=== PATIENT | male | born 1965 | race Caucasian/White ===

== ENCOUNTER 2017-05-14 18:20 | Emergency (ER) | payer MEDICARE ==
[2017-05-14 18:58] LABS: ABSOLUTE EOSINOPHILS # (AUTO) 0.2 10^3/uL (0.0-0.6); ABSOLUTE LYMPHOCYTES (AUTO) 1.4 10^3/uL (0.5-4.7); ABSOLUTE MONOCYTES (AUTO) 0.3 10^3/uL (0.1-1.4); ABSOLUTE NEUT (AUTO) 3.9 10^3/uL (1.7-8.2); BASOPHILS % (AUTO) 0.8 % (0-2); EOSINOPHILS % (AUTO) 3.3 % (0-6); HEMOGLOBIN 14.3 g/dL (13.5-17.0); HGB HCT DIFFERENCE -0.1; LYMPHOCYTES % (AUTO) 23.8 % (13-45); MEAN CORPUSCULAR HEMOGLOBIN 30.4 pg (27.0-33.4); MEAN CORPUSCULAR HGB CONC 33.2 g/dL (32.0-36.0); MEAN CORPUSCULAR VOLUME 92 fl (80-97); MONOCYTES % (AUTO) 5.5 % (3-13); RED BLOOD COUNT 4.69 10^6/uL (4.35-5.55); RED CELL DISTRIBUTION WIDTH 15.7 % (11.5-14.0); SEGMENTED NEUTROPHILS % (AUTO) 66.6 % (42-78); WHITE BLOOD COUNT 5.8 10^3/uL (4.0-10.5)
[2017-05-14] MEDS ORDERED: NITROGLYCERIN 0.4 MG/TAB 25 TAB/BOTTLE SL PRN (18:59)
[2017-05-14] MEDS ORDERED: FENTANYL CITRATE INJ/PF 100 MCG/2 ML AMPUL IV PRN (19:00)
--- NOTE | 2017-05-14 19:02 | RADIOLOGY REPORT (SQ) ---
EXAM DESCRIPTION: CHEST SINGLE VIEW COMPLETED DATE/TIME: 05/14/2017 6:51 pm REASON FOR STUDY: chest pain COMPARISON: None. EXAM PARAMETERS: NUMBER OF VIEWS: One view. TECHNIQUE: Single frontal radiographic view of the chest acquired. RADIATION DOSE: NA LIMITATIONS: None. FINDINGS: LUNGS AND PLEURA: There is mild pulmonary vascular congestion. MEDIASTINUM AND HILAR STRUCTURES: No masses. Contour normal. HEART AND VASCULAR STRUCTURES: Cardiomegaly without tita CHF. BONES: No acute findings. HARDWARE: Pacemaker/defibrillator. OTHER: No other significant finding. IMPRESSION: Cardiomegaly with pulmonary vascular congestion but no tita CHF. TECHNICAL DOCUMENTATION: JOB ID: [id number]
--- NOTE | 2017-05-14 19:09 | ER Document Report ---
ED General - General Stated Complaint: CHEST PAIN Time Seen by Provider: 05/14/17 18:35 Notes: Patient is a 51-year-old male with past medical history of ischemic cardiomyopathy, ejection fraction of 15%, coronary artery disease last cardiac catheterization 11 years ago with stent placement, current tobacco abuse, who presents with acute onset of left-sided chest pressure with radiation of the pain to the bilateral upper extremities. This occurred during exertion after he was walking up and down a driveway approximately 5 times. He received nitroglycerin by EMS which she states has resolved his chest pain. Patient is noted to be hypoxic at time of presentation and denies the use of nasal cannula at baseline. No history of COPD or asthma. He has not noted that anything other than exertion seemed to have triggered his chest pain. He reports a history of similar episodes in the past. He recently saw his puppy sitter and was told that he had a stress test that was "worrisome" but does not know further details. TRAVEL OUTSIDE OF THE [place] IN LAST 30 DAYS: No - Related Data Allergies/Adverse Reactions: cinnamon Allergy (Verified 06/18/16 10:03) morphine [Morphine] Adverse Reaction (Severe, Verified 08/01/15 01:53) itching Past Medical History - General Information source: Patient - Social History Smoking Status: Current Every Day Smoker Frequency of alcohol use: None Drug Abuse: None Lives with: Family Family History: CAD - Past Medical History Cardiac Medical History: Reports: Hx Congestive Heart Failure, Hx Coronary Artery Disease, Hx Heart Attack, Hx Hypertension Pulmonary Medical History: Reports: Hx COPD Skin Medical History: Comment Only Hx MRSA - MRSA 04/15 [facility] Psychiatric Medical History: Denies: Hx Depression Past Surgical History: Reports: Hx Cardiac Catheterization - with stent, Hx Internal Defibrillator, Hx PacemakerComment Only: Hx Cardiac Surgery - defib placement - Immunizations Hx Diphtheria, Pertussis, Tetanus Vaccination: No Review of Systems - Review of Systems Notes: Constitutional: Negative for fever. HENT: Negative for sore throat. Eyes: Negative for visual changes. Cardiovascular: Positive for chest pain. Respiratory: Positive for shortness of breath. Gastrointestinal: Negative for abdominal pain, vomiting or diarrhea. Genitourinary: Negative for dysuria. Musculoskeletal: Negative for back pain. Skin: Negative for rash. Neurological: Negative for headaches, weakness or numbness. 10 point ROS negative except as marked above and in HPI. Physical Exam - Vital signs Vitals: Resp Pulse Ox 19 86 L 05/14/17 18:34 05/14/17 18:34 Interpretation: Tachycardic, Hypoxic, Tachypneic Notes: PHYSICAL EXAMINATION: GENERAL: Ill in appearance, diaphoretic HEAD: Atraumatic, normocephalic. EYES: Pupils equal round and reactive to light, extraocular movements intact, sclera anicteric, conjunctiva are normal. ENT: nares patent, oropharynx clear without exudates. Moderately dry mucous membranes. NECK: Normal range of motion, supple without lymphadenopathy LUNGS: Breath sounds clear to auscultation bilaterally and equal. No wheezes rales or rhonchi. HEART: Regular tachycardia without murmurs ABDOMEN: Soft, nontender, normoactive bowel sounds. No guarding, no rebound. No masses appreciated. EXTREMITIES: Normal range of motion, 1+ pitting edema on the right, 2+ on the left NEUROLOGICAL: No focal neurological deficits. Moves all extremities spontaneously and on command. PSYCH: Normal mood, normal affect. SKIN: Warm, Dry, normal turgor, no rashes or lesions noted. Course - Re-evaluation Re-evalutation: 05/14/17 19:04 Patient presents ill in appearance, diaphoretic, complaining of chest pressure that started with exertion. He he has a worrisome history given that it was left-sided chest pain with radiation of the bilateral upper extremities during exertion. He has a history of ischemic cardiomyopathy with a known ejection fraction of 15%. He has a pacemaker, develop later in place but apparently the defibrillator battery is not working and he is wearing a LifeVest due to his low ejection fraction. States he recently had a cardiac stress test and was told "it was very worrisome" but did not know any additional details. Patient is diaphoretic, tachycardic, hypoxic on room air. Primary diagnostic concerns at this point include progressively worsening ischemic cardiomyopathy, possible acute pulmonary embolus, less likely to be acute pulmonary edema as patient's blood pressure is normal, I do not appreciate any rales on exam, and chest x- ray does not demonstrate any venous congestion or pulmonary edema. His initial EKG shows left bundle branch block of which he has a history without meeting any scar Bosa criteria. I do not believe he is having an acute STEMI at this time. He will however require transfer to a high level care facility as I believe he warrants a cardiac catheterization given his high risk and history. Will obtain basic labs including a d-dimer and reassess frequently. Patient is critically ill at this time and will require frequent reassessments. 05/14/17 19:59 Patient remains moderately tachycardic, current rate 115, diaphoresis has resolved. No longer has chest pressure. D-dimer is elevated and given tachycardia and hypoxemia will proceed with CTA of the chest. 05/14/17 22:41 I have discussed this case with Dr. Lantigua, at [facility] who has accepted the patient for admission. We will continue to trend his troponins. They do not have a bed available at this time. 05/15/17 00:21 Patient remains mildly hypotensive, will trial 250 cc bolus. Second troponin is hemolyzed. Will continue to monitor closely. 05/15/17 01:14 Patient's BP is not fluid responsive to a 500cc trial. Will not give additional fluids as this has not made any impact and he has severe CHF. Patient is also resting which could naturally lower his BP. He wakes, talks normally, and states he feels much better since arrival. Review of prior records shows his BP typically rests low 100s upper 90s. MAP is 70. No indication for pressors at this time. 05/15/17 01:43 Patient was able to stand at the bedside without any difficulty. No orthostasis. His maps remain in the 70s. Patient does confirm that his blood pressures are typically in the low 100s upper 90s. I do not see an obvious etiology for why patient would be mildly hypertensive other than that his normal blood pressure is in the 90s and he is sleeping often. When he wakes up he is appropriate and denies any ongoing symptoms. We have not given any narcotic pain medication or additional nitroglycerin. He does not have any additional symptoms to suggest that he is proceeding to cardiogenic shock. Will continue to monitor closely but at this time I suspect this is likely in a symptomatically mild hypotension. 05/15/17 02:51 Patient's pressure remains stable in the 90s at this time. He remains without chest pain. Awaiting transfer. 05/15/17 04:01 Patient remains clinically stable at this time. Awaiting transfer to [facility]. Troponins have not trended upward. 05/15/17 04:01 - Vital Signs Vital signs: Temp Pulse Resp BP Pulse Ox 78 13 88/68 L 97 05/15/17 01:26 05/15/17 03:46 05/15/17 03:45 05/15/17 03:46 - Laboratory Result Diagrams: 05/14/17 18:40 05/14/17 18:40 Laboratory results interpreted by me: 05/14/17 05/14/17 05/14/17 18:40 18:40 18:40 RDW 15.7 H D-Dimer 1.67 H Glucose 126 H NT-Pro-B Natriuret Pep 05/14/17 18:40 RDW D-Dimer Glucose NT-Pro-B Natriuret Pep 3520 H - Diagnostic Test Radiology reviewed: Image reviewed, Reports reviewed Radiology results interpreted by me: 05/14/17 20:00 Chest x-ray: Cardiomegaly, mild vascular congestion but no overt pulmonary edema - EKG Interpretation by Me Additional EKG results interpreted by me: 05/14/17 20:00 Sinus tachycardia, rate 116. Left bundle branch block. No scarbosa criteria. Critical Care Note - Critical Care Note Total time excluding time spent on procedures (mins): 35 Comments: Critical care time spent obtaining history from patient or surrogate, discussions with consultants, development of treatment plan with patient or surrogate, evaluation of patient's response to treatment, examination of patient , ordering and performing treatments and interventions, ordering and review of laboratory studies, re-evaluation of patient's condition, ordering and review of radiographic studies and review of old charts Discharge - Discharge Clinical Impression: Acute on chronic systolic heart failure Congestive heart failure Qualifiers: Congestive heart failure type: systolic Congestive heart failure chronicity: chronic Qualified Code(s): I50.22 - Chronic systolic (congestive) heart failure Chest pain Qualifiers: Chest pain type: chest pain due to myocardial ischemia Ischemic chest pain type : stable angina pectoris Qualified Code(s): I20.8 - Other forms of angina pectoris Condition: Fair Disposition: [facility] Referrals: ARNOLD CORTEZ MD [Primary Care Provider] - Follow up as needed
[2017-05-14 19:13] LABS: ANION GAP 12 (5-19); BLOOD UREA NITROGEN 11 mg/dL (7-20); CARBON DIOXIDE 22 mmol/L (22-30); CHLORIDE 103 mmol/L (98-107); CREATINE KINASE 130 U/L (55-170); CREATININE RESULT 1.12 mg/dL (0.52-1.25); GLUCOSE 126 mg/dL (75-110); POTASSIUM 3.8 mmol/L (3.6-5.0); SODIUM 137.2 mmol/L (137-145)
[2017-05-14 19:26] LABS: CREATINE KINASE MB 1.22 ng/mL (<4.55); TROPONIN I 0.027 ng/mL
--- NOTE | 2017-05-14 19:53 | EKG REPORT ---
SEVERITY:- ABNORMAL ECG - SINUS TACHYCARDIA VENTRICULAR PREMATURE COMPLEX LEFT BUNDLE BRANCH BLOCK LA ABNORMALITY : Confirmed by: Arthur Romano MD 14-May-2017 19:53:06
--- NOTE | 2017-05-14 21:21 | RADIOLOGY REPORT (SQ) ---
EXAM DESCRIPTION: CTA CHEST COMPLETED DATE/TIME: 05/14/2017 9:08 pm REASON FOR STUDY: eval pe, elevated dimer COMPARISON: CT chest dated 04/25/2008, chest x-ray done earlier the same day. TECHNIQUE: CT scan of the chest performed using helical scanning technique with dynamic intravenous contrast injection. Images reviewed with lung, soft tissue and bone windows. Reconstructed coronal and sagittal MPR images reviewed. Additional 3 dimensional post-processing performed to develop Maximal Intensity Projection images ([place] P). All images stored on PACS. All CT scanners at this facility use dose modulation, iterative reconstruction, and/or weight based d osing when appropriate to reduce radiation dose to as low as reasonably achievable (ALARA). [facility]: Dose Right [facility]: CareDose [facility]: Dose Right [facility]: Teradose 4D [facility]: Multichannel CONTRAST TYPE AND DOSE: contrast/concentration: Isovue 370.00 mg/ml; Total Contrast Delivered: 80.0 ml; Total Saline Delivered: 50.0 ml Contrast bolus optimized for the pulmonary arteries. Not diagnostic for the aorta. RENAL FUNCTION: BUN 11, creatinine 1.12 RADIATION DOSE: Up-to-date CT equipment and radiation dose reduction techniques were employed. CTDIv ol: 17.2 - 44.6 mGy. DLP: 729 mGy-cm. . LIMITATIONS: None. FINDINGS: LUNGS AND PLEURA: No masses, infiltrates, pneumothorax. No pleural effusions, calcificati ons. AORTA AND GREAT VESSELS: No aneurysm. Contrast bolus not optimized for the aorta. HEART: No pericardial effusion. No significant coronary artery calcifications. PULMONARY ARTERIES: No emboli visualized in the main pulmonary arteries or the segmental branches. HILAR AND MEDIASTINAL STRUCTURES: There is mediastinal and hilar adenopathy. This could be reactive or neoplastic. The nodes are small but relatively numerous. HARDWARE: Battery pack and leads are in place. UPPER ABDOMEN: No significant findings. Limited exam. THYROID AND OTHER SOFT TISSUES: No masses. No adenopathy. BONES: No acute or significant finding. 3D MIPS: Confirm above findings. OTHER: No other significant finding. IMPRESSION: No pulmonary emboli. There is mediastinal and hilar adenopathy. This is nonspecific. COMMENT: Quality ID # [id number]: Final reports with documentation of one or more dose reduction techniques (e.g., Automated exposure control, adjustment of the mA and/or kV according to patient size, use of iterative reconstruction technique) TECHNICAL DOCUMENTATION: JOB ID: [id number] [employer]- All Rights Reserved
[2017-05-14] MEDS ORDERED: NORMAL SALINE 1000 ML 250 ML IV ONE (22:42)
--- NOTE | 2017-05-15 06:28 | ER Document Report ---
Doctor's Note Notes: 05/15/17 06:27 I walked in the room to reevaluate the patient. Patient is sleeping and resting very comfortably. She has no signs of distress. His vital signs are stable on the monitor. Repeat cardiac enzymes still in the indeterminate range. I have checked out the patient to morning ER physician, Dr. Baer, who will continue to monitor the patient until transferred.
--- NOTE | 2017-05-15 12:25 | ER Document Report ---
Doctor's Note Notes: 05/15/17 12:24 Patient with known cardiomyopathy and low EF. He has been in the emergency department awaiting transfer for higher level of care and cardiac catheterization. He has remained stable. Blood pressure currently 90/72 with a pulse of 83. He appears stable for transfer.
[2017-05-15 12:31] VITALS: BP 90/72
== END 2017-05-15 12:31 | disposition short-term general hospital (02) ==
LOC: ER 18:20
DX: I50.23 Acute on chronic systolic (congestive) heart failure (principal); I20.8 Other forms of angina pectoris; I25.5 Ischemic cardiomyopathy; I25.10 Atherosclerotic heart disease of native coronary artery without angina pectoris; F17.200 Nicotine dependence, unspecified, uncomplicated
CPT/HCPCS: 93005; 99291; 96374; 36415; 82553; 82550; 85025; 80048; 84484; 85379; 83880; 71010; 71275; 93010; J3010; J7030

== ENCOUNTER 2017-06-19 09:48 | Emergency (ER) | payer MEDICARE ==
[2017-06-19] MEDS ORDERED: ASPIRIN 81 MG TABLET, CHEWABLE PO ONE (10:11)
--- NOTE | 2017-06-19 10:12 | ER Document Report ---
ED Medical Screen (RME) - General TRAVEL OUTSIDE OF THE [place] IN LAST 30 DAYS: No <BENOIT BUCHANAN - Last Filed: 06/19/17 10:11> <JONATHAN COOMBS - Last Filed: 06/19/17 10:18> - General Chief Complaint: Chest Pain Stated Complaint: CHEST PAIN Time Seen by Provider: 06/19/17 10:05 Notes: 51-year-old male presenting the emergency department complaining of one-week history of intermittent shortness of breath the general is been lasting 1-2 hours a day however it became constant last night and is getting worse, associated with left-sided chest pressure as well. Patient states he had 2 coronary artery stents placed in [place] approximately 2 weeks ago and had his pacemaker adjusted as well. Has had some medication changes. Cannot remember exactly what has been changed. Took his baby aspirin today. Admits that the shortness of breath worsens with laying flat. (JONATHAN COOMBS) - Related Data Allergies/Adverse Reactions: cinnamon Allergy (Verified 06/19/17 10:06) morphine [Morphine] Adverse Reaction (Severe, Verified 06/19/17 10:06) itching Past Medical History - Past Medical History Cardiac Medical History: Reports: Hx Congestive Heart Failure, Hx Coronary Artery Disease, Hx Heart Attack, Hx Hypertension Pulmonary Medical History: Reports: Hx COPD Renal/ Medical History: Denies: Hx Peritoneal Dialysis Skin Medical History: Comment Only Hx MRSA - MRSA 04/15 [facility] Psychiatric Medical History: Denies: Hx Depression Past Surgical History: Reports: Hx Cardiac Catheterization - with stent, Hx Internal Defibrillator, Hx PacemakerComment Only: Hx Cardiac Surgery - defib placement - Immunizations Hx Diphtheria, Pertussis, Tetanus Vaccination: No <BENOIT BUCHANAN - Last Filed: 06/19/17 10:11> - General Information source: Patient - Social History Cigarette use (# per day): No Chew tobacco use (# tins/day): No Frequency of alcohol use: None Drug Abuse: None <JONATHAN COOMBS - Last Filed: 06/19/17 10:18> Review of Systems - Review of Systems Cardiovascular: See HPI Respiratory: See HPI <JONATHAN COOMBS - Last Filed: 06/19/17 10:18> Physical Exam <BENOIT BUCHANAN - Last Filed: 06/19/17 10:11> - Vital signs Interpretation: Normal <JONATHAN COOMBS - Last Filed: 06/19/17 10:18> - Vital signs Vitals: Temp Pulse Resp BP Pulse Ox 97.9 F 98 20 112/75 96 06/19/17 09:57 06/19/17 09:57 06/19/17 09:57 06/19/17 09:57 06/19/17 09:57 - Notes Notes: Appears anxious, quite short of breath, tachypneic but not tachycardic. Lungs are clear to auscultation bilaterally without any wheezing rales or rhonchi, heart is regular rate and rhythm with no murmurs gallops or rubs. Patient is somewhat pale. (JONATHAN COOMBS) Course <BENOIT BUCHANAN - Last Filed: 06/19/17 10:11> <JONATHAN COOMBS - Last Filed: 06/19/17 10:18> - Re-evaluation Re-evalutation: 06/19/17 10:18 EKG is relatively unchanged, does not show STEMI, cardiac workup initiated. Sent to main part of the emergency department for further workup. (JONATHAN COOMBS) - Vital Signs Vital signs: Temp Pulse Resp BP Pulse Ox 97.9 F 98 20 112/75 96 06/19/17 09:57 06/19/17 09:57 06/19/17 09:57 06/19/17 09:57 06/19/17 09:57
[2017-06-19 11:18] LABS: ABSOLUTE EOSINOPHILS # (AUTO) 0.1 10^3/uL (0.0-0.6); ABSOLUTE MONOCYTES (AUTO) 0.3 10^3/uL (0.1-1.4); ABSOLUTE NEUT (AUTO) 6.2 10^3/uL (1.7-8.2); BASOPHILS % (AUTO) 0.5 % (0-2); EOSINOPHILS % (AUTO) 1.9 % (0-6); HEMATOCRIT 42.9 % (37.9-51.0); HEMOGLOBIN 14.5 g/dL (13.5-17.0); HGB HCT DIFFERENCE 0.6; LYMPHOCYTES % (AUTO) 13.5 % (13-45); MEAN CORPUSCULAR HEMOGLOBIN 29.9 pg (27.0-33.4); MEAN CORPUSCULAR HGB CONC 33.9 g/dL (32.0-36.0); MEAN CORPUSCULAR VOLUME 88 fl (80-97); MONOCYTES % (AUTO) 4.3 % (3-13); RED BLOOD COUNT 4.87 10^6/uL (4.35-5.55); RED CELL DISTRIBUTION WIDTH 15.4 % (11.5-14.0); SEGMENTED NEUTROPHILS % (AUTO) 79.8 % (42-78); WHITE BLOOD COUNT 7.7 10^3/uL (4.0-10.5)
--- NOTE | 2017-06-19 11:31 | RADIOLOGY REPORT (SQ) ---
EXAM DESCRIPTION: CHEST SINGLE VIEW COMPLETED DATE/TIME: 06/19/2017 10:59 am REASON FOR STUDY: SOB, CP COMPARISON: 05/14/2017 EXAM PARAMETERS: NUMBER OF VIEWS: One view. TECHNIQUE: Single frontal radiographic view of the chest acquired. RADIATION DOSE: NA LIMITATIONS: None. FINDINGS: LUNGS AND PLEURA: There is ill-defined retrocardiac opacification on the left. Portions t he left hemidiaphragm are indistinct. MEDIASTINUM AND HILAR STRUCTURES: No masses. Contour normal. HEART AND VASCULAR STRUCTURES: Cardiomegaly without CHF. BONES: No acute findings. HARDWARE: Pacemaker/defibrillator. OTHER: No other significant finding. IMPRESSION: 1. Cardiomegaly without failure. 2. Cannot exclude a limited left lower lobe pneumonia. TECHNICAL DOCUMENTATION: JOB ID: [id number]
[2017-06-19 11:44] LABS: ALANINE AMINOTRANSFERASE 32 U/L (21-72); ALBUMIN 4.5 g/dL (3.5-5.0); ALKALINE PHOSPHATASE 74 U/L (38-126); ANION GAP 16 (5-19); ASPARTATE AMINO TRANSFERASE 17 U/L (17-59); BILIRUBIN,DIRECT 0.7 mg/dL (0.0-0.4); BILIRUBIN,TOTAL 3.1 mg/dL (0.2-1.3); BLOOD UREA NITROGEN 13 mg/dL (7-20); CALCIUM 9.8 mg/dL (8.4-10.2); CARBON DIOXIDE 24 mmol/L (22-30); CHLORIDE 105 mmol/L (98-107); CREATINE KINASE 64 U/L (55-170); GLUCOSE 104 mg/dL (75-110); POTASSIUM 4.3 mmol/L (3.6-5.0); TOTAL PROTEIN 7.4 g/dL (6.3-8.2)
[2017-06-19 11:54] LABS: CREATINE KINASE MB 1.67 ng/mL (<4.55)
[2017-06-19 11:55] LABS: TROPONIN I 0.054 ng/mL
--- NOTE | 2017-06-19 12:53 | ER Document Report ---
ED Cardiac - General Mode of Arrival: Ambulatory Information source: Patient TRAVEL OUTSIDE OF THE [place] IN LAST 30 DAYS: No <LEOBARDO KING - Last Filed: 06/19/17 14:03> <GIOVANNI ANDINO - Last Filed: 06/19/17 16:33> - General Chief Complaint: Chest Pain Stated Complaint: CHEST PAIN Time Seen by Provider: 06/19/17 10:05 Notes: Patient is a 51-year-old male that presents to the emergency department today with complaints of chest pain for one week. Patient states he had a defibrillator changed one week ago and he had two stents placed during this change. Patient states his chest pain is exacerbated with coughing and deep breathing. (LEOBARDO KING) - Related Data Allergies/Adverse Reactions: cinnamon Allergy (Verified 06/19/17 10:06) morphine [Morphine] Adverse Reaction (Severe, Verified 06/19/17 10:06) itching Home Medications: Current Home Medications Atorvastatin Calcium 40 mg PO DAILY 06/19/17 [History] Furosemide [Lasix 40 mg Tablet] 20 mg PO DAILY 06/19/17 [History] Lisinopril [Prinivil 5 mg Tablet] 2.5 mg PO DAILY 06/19/17 [History] Metoprolol Succinate [Toprol Xl 25 mg Tab.sr] 12 mg PO DAILY 06/19/17 [History] Sacubitril/Valsartan [Entresto 49 mg-51 mg Tablet] 1 each PO BID 06/19/17 [ History] Ticagrelor [Brilinta 90 mg Tablet] 1 tab PO BID 06/19/17 [History] Past Medical History - General Information source: Patient - Social History Smoking Status: Never Smoker Cigarette use (# per day): No Chew tobacco use (# tins/day): No Frequency of alcohol use: None Drug Abuse: None Family History: CAD Patient has suicidal ideation: No - Past Medical History Cardiac Medical History: Reports: Hx Congestive Heart Failure, Hx Coronary Artery Disease, Hx Heart Attack, Hx Hypertension Pulmonary Medical History: Reports: Hx COPD Skin Medical History: Comment Only Hx MRSA - MRSA 04/15 [facility] Past Surgical History: Reports: Hx Cardiac Catheterization - with stent, Hx Internal Defibrillator, Hx PacemakerComment Only: Hx Cardiac Surgery - defib placement - Immunizations Hx Diphtheria, Pertussis, Tetanus Vaccination: No <LEOBARDO KING - Last Filed: 06/19/17 14:03> Review of Systems - Review of Systems Constitutional: No symptoms reported EENT: No symptoms reported Cardiovascular: See HPI, Chest pain Respiratory: No symptoms reported Gastrointestinal: No symptoms reported Genitourinary: No symptoms reported Male Genitourinary: No symptoms reported Musculoskeletal: No symptoms reported Skin: No symptoms reported Hematologic/Lymphatic: No symptoms reported Neurological/Psychological: No symptoms reported <LEOBARDO KING - Last Filed: 06/19/17 14:03> Physical Exam <LEOBARDO KING - Last Filed: 06/19/17 14:03> <THU,GIOVANNI - Last Filed: 06/19/17 16:33> - Vital signs Vitals: Temp Pulse Resp BP Pulse Ox 97.9 F 98 20 112/75 96 06/19/17 09:57 06/19/17 09:57 06/19/17 09:57 06/19/17 09:57 06/19/17 09:57 - Notes Notes: Physical Exam: General: Alert, appears well. HEENT: Normocephalic. Atraumatic. PERRL. Extraocular movements intact. Oropharynx clear. Neck: Supple. Non-tender. Respiratory: No respiratory distress. Slight wheezing and rhonchi bilaterally. Left anterior chest wall tenderness with palpation. Pain with cough and breathing. Cardiovascular: Regular rate and rhythm. Abdominal: Normal Inspection. Non-tender. No distension. Normal Bowel Sounds. Back: Non-tender. No deformity or step off. Extremities: Moves all four extremities. Upper extremities: Normal inspection. Normal ROM. Lower extremities: Trace edema bilaterally. Normal ROM. Neurological: Normal cognition. AAOx4. Normal speech. Psychological: Normal affect. Normal Mood. Skin: Warm. Dry. Normal color. (LEOBARDO KING) Course - Laboratory Result Diagrams: 06/19/17 10:25 06/19/17 10:25 <LEOBARDO KING - Last Filed: 06/19/17 14:03> - Laboratory Result Diagrams: 06/19/17 10:25 06/19/17 10:25 - Diagnostic Test Radiology reviewed: Image reviewed, Reports reviewed - Portable chest x-ray was read as possible infiltrate behind the left heart with blurring of the diaphragm. A good PA and lateral films done later shows some pulmonary vascular congestion without pulmonary edema. - EKG Interpretation by Me EKG shows normal: Sinus rhythm, [place], Intervals, QRS Complexes, ST-T Waves Rate: Tachycardia - 101 Rhythm: PVC's [place]/QRS: RBBB, LAHB/LAFB Voltage: Consistant with LVH When compared to previous EKG there are: No significant change - Consults Dr. Smith Time consulted: 16:25 Consulted provider: follow-up in office - Dr. Smith suggests I give him additional IV Lasix at this time possibly his usual daily dose of 20 mg. He thinks he should be okay to follow-up with him in the office tomorrow. <GIOVANNI ANDINO - Last Filed: 06/19/17 16:33> - Re-evaluation Re-evalutation: 06/19/17 16:25 The patient's BNP is much higher today than it has been over the past month. He does seem to be a little dyspneic, his family reports he seems to been more short of breath since he got out of the hospital following his 2 stents and new defibrillator a month ago. He takes Lasix 20 mg daily. He states his blood pressure has been low since he was placed on the interest, and they did not want him taking additional Lasix because of the interaction with that new medication. A good PA and lateral chest x-ray suggests pulmonary vascular congestion. (GIOVANNI ANDINO) - Vital Signs Vital signs: Temp Pulse Resp BP Pulse Ox 97.9 F 98 20 112/75 96 06/19/17 09:57 06/19/17 09:57 06/19/17 09:57 06/19/17 09:57 06/19/17 09:57 - Laboratory Laboratory results interpreted by me: 06/19/17 06/19/17 06/19/17 10:25 10:25 10:25 RDW 15.4 H Seg Neutrophils % 79.8 H Total Bilirubin 3.1 H Direct Bilirubin 0.7 H NT-Pro-B Natriuret Pep 7010 H Discharge <LEOBARDO KING - Last Filed: 06/19/17 14:03> <GIOVANNI ANDINO - Last Filed: 06/19/17 16:33> - Discharge Clinical Impression: Pulmonary vascular congestion, Chest wall pain Dyspnea Qualifiers: Dyspnea type: unspecified Qualified Code(s): R06.00 - Dyspnea, unspecified Condition: Stable Disposition: HOME, SELF-CARE Additional Instructions: The chest pain you are experiencing seems to be coming from the chest wall bones and muscles. Your repeat chest x-ray done over in the main radiology department does suggest some pulmonary vascular congestion which could account for your shortness of breath. Dr. Smith has requested we give you an additional dose of Lasix intravenously here in the emergency room. He wants you to come to the office tomorrow to see him. You should continue your regular medications while at home. Call the office in the morning to schedule an appointment time tomorrow. RETURN TO THE EMERGENCY ROOM IF ANY NEW OR WORSENING SYMPTOMS. Scribe Attestation: 06/19/17 16:30 I personally performed the services described in the documentation, reviewed and edited the documentation which was dictated to the scribe in my presence, and it accurately records my words and actions. (GIOVANNI ANDINO) Scribe Documentation - Scribe Written by Cathy:: Cathy Wiggins, 06/19/2017 1309 acting as scribe for :: Thu <LEOBARDO KING - Last Filed: 06/19/17 14:03>
[2017-06-19] MEDS ORDERED: FUROSEMIDE INJ/PF 20 MG/2 ML SDV IV ONE (16:25)
--- NOTE | 2017-06-19 16:26 | RADIOLOGY REPORT (SQ) ---
EXAM DESCRIPTION: CHEST PA/LAT COMPLETED DATE/TIME: 06/19/2017 4:00 pm REASON FOR STUDY: left pleuritic chest pain COMPARISON: CT angio chest 05/14/2017 Chest films 06/19/2017, 05/14/2017 EXAM PARAMETERS: NUMBER OF VIEWS: two views TECHNIQUE: Digital Frontal and Lateral radiographic views of the chest acquired. RADIATION DOSE: NA LIMITATIONS: none FINDINGS: LUNGS AND PLEURA: Mild pulmonary vascular congestion. No alveolar or is edema detected fu franny. No pneumothorax. MEDIASTINUM AND HILAR STRUCTURES: No masses or contour abnormalities. HEART AND VASCULAR STRUCTURES: Moderate cardiomegaly. BONES: No acute findings. HARDWARE: Left-sided dual lead pacemaker OTHER: No other significant finding. IMPRESSION: Pulmonary vascular congestion without definite alveolar or interstitial edema. Moderate cardiomegaly with left-sided dual lead pacemaker TECHNICAL DOCUMENTATION: JOB ID: [id number] [employer]- All Rights Reserved
[2017-06-19 18:52] VITALS: BP 122/104
--- NOTE | 2017-06-19 19:56 | EKG REPORT ---
SEVERITY:- ABNORMAL ECG - SINUS TACHYCARDIA VENTRICULAR PREMATURE COMPLEX RBBB AND LAFB PROBABLE LEFT VENTRICULAR HYPERTROPHY OLD LATERAL OH : Confirmed by: Arthur Romano MD 19-Jun-2017 19:55:43
== END 2017-06-19 17:25 | disposition home or self-care (01) ==
LOC: ER 09:48
DX: R07.89 Other chest pain (principal); I11.0 Hypertensive heart disease with heart failure; I50.9 Heart failure, unspecified; Z79.899 Other long term (current) drug therapy; J44.9 Chronic obstructive pulmonary disease, unspecified; I45.2 Bifascicular block; I25.10 Atherosclerotic heart disease of native coronary artery without angina pectoris; I25.2 Old myocardial infarction; Z95.810 Presence of automatic (implantable) cardiac defibrillator; Z95.5 Presence of coronary angioplasty implant and graft; Z91.018 Allergy to other foods; Z82.49 Family history of ischemic heart disease and other diseases of the circulatory system
CPT/HCPCS: 93005; 99284; 96374; 36415; 82553; 82550; 85025; 80053; 84484; 83880; 71020; 71010; 93010; A9270; J1940

== ENCOUNTER 2017-11-10 14:09 | Inpatient (IN) | payer MEDICARE ==
--- NOTE | 2017-11-10 15:55 | ER Document Report ---
ED Medical Screen (RME) - General Chief Complaint: Chest Pain Stated Complaint: CHEST PAIN Time Seen by Provider: 11/10/17 15:53 Notes: Patient has a history of CHF. He presents stating that he is feeling very weak and having shortness of breath. TRAVEL OUTSIDE OF THE [place] IN LAST 30 DAYS: No - Related Data Allergies/Adverse Reactions: cinnamon Allergy (Verified 11/10/17 14:10) morphine [Morphine] Adverse Reaction (Severe, Verified 11/10/17 14:10) itching Past Medical History - Social History Chew tobacco use (# tins/day): No Frequency of alcohol use: None Drug Abuse: None - Past Medical History Cardiac Medical History: Reports: Hx Congestive Heart Failure, Hx Coronary Artery Disease, Hx Heart Attack, Hx Hypertension Pulmonary Medical History: Reports: Hx COPD Renal/ Medical History: Denies: Hx Peritoneal Dialysis Skin Medical History: Comment Only Hx MRSA - MRSA 04/15 [facility] Psychiatric Medical History: Denies: Hx Depression Past Surgical History: Reports: Hx Cardiac Catheterization - with stent, Hx Internal Defibrillator, Hx PacemakerComment Only: Hx Cardiac Surgery - defib placement - Immunizations Hx Diphtheria, Pertussis, Tetanus Vaccination: No History of Influenza Vaccine for 06/2017 - 11/2017 Season: No Physical Exam - Vital signs Vitals: Temp Pulse Resp BP Pulse Ox 97.7 F 101 H 20 111/85 98 11/10/17 14:24 11/10/17 14:24 11/10/17 14:24 11/10/17 14:24 11/10/17 14:24 Course - Vital Signs Vital signs: Temp Pulse Resp BP Pulse Ox 97.7 F 101 H 20 111/85 98 11/10/17 14:24 11/10/17 14:24 11/10/17 14:24 11/10/17 14:24 11/10/17 14:24
[2017-11-10 16:11] LABS: ABSOLUTE BASOPHILS # (AUTO) 0.1 10^3/uL (0.0-0.2); ABSOLUTE LYMPHOCYTES (AUTO) 1.1 10^3/uL (0.5-4.7); ABSOLUTE MONOCYTES (AUTO) 0.5 10^3/uL (0.1-1.4); ABSOLUTE NEUT (AUTO) 4.1 10^3/uL (1.7-8.2); EOSINOPHILS % (AUTO) 0.7 % (0-6); HEMATOCRIT 46.7 % (37.9-51.0); HEMOGLOBIN 15.3 g/dL (13.5-17.0); LYMPHOCYTES % (AUTO) 18.4 % (13-45); MEAN CORPUSCULAR HEMOGLOBIN 30.1 pg (27.0-33.4); MEAN CORPUSCULAR HGB CONC 32.8 g/dL (32.0-36.0); MEAN CORPUSCULAR VOLUME 92 fl (80-97); MONOCYTES % (AUTO) 8.9 % (3-13); PLATELET COUNT 211 10^3/uL (150-450); RED BLOOD COUNT 5.09 10^6/uL (4.35-5.55); RED CELL DISTRIBUTION WIDTH 17.2 % (11.5-14.0); TOTAL CELLS COUNTED % (AUTO) 100 %; WHITE BLOOD COUNT 5.8 10^3/uL (4.0-10.5)
[2017-11-10 16:25] LABS: ALANINE AMINOTRANSFERASE 250 U/L (21-72); ALBUMIN 3.9 g/dL (3.5-5.0); ALKALINE PHOSPHATASE 75 U/L (38-126); ANION GAP 12 (5-19); ASPARTATE AMINO TRANSFERASE 73 U/L (17-59); BILIRUBIN,TOTAL 3.2 mg/dL (0.2-1.3); BLOOD UREA NITROGEN 28 mg/dL (7-20); CALCIUM 9.5 mg/dL (8.4-10.2); CARBON DIOXIDE 22 mmol/L (22-30); CHLORIDE 94 mmol/L (98-107); GLUCOSE 104 mg/dL (75-110); POTASSIUM 5.2 mmol/L (3.6-5.0); SODIUM 127.8 mmol/L (137-145); TOTAL PROTEIN 6.5 g/dL (6.3-8.2)
--- NOTE | 2017-11-10 16:42 | RADIOLOGY REPORT (SQ) ---
EXAM DESCRIPTION: CHEST PA/LAT COMPLETED DATE/TIME: 11/10/2017 4:19 pm REASON FOR STUDY: sob COMPARISON: 06/19/2017 EXAM PARAMETERS: NUMBER OF VIEWS: two views TECHNIQUE: Digital Frontal and Lateral radiographic views of the chest acquired. RADIATION DOSE: NA LIMITATIONS: none FINDINGS: LUNGS AND PLEURA: No opacities, masses or pneumothorax. No pleural effusion. MEDIASTINUM AND HILAR STRUCTURES: No masses or contour abnormalities. HEART AND VASCULAR STRUCTURES: Cardiomegaly. Mild pulmonary vascular prominence. BONES: No acute findings. HARDWARE: Pacemaker/defibrillator. OTHER: No other significant finding. IMPRESSION: Cardiac enlargement with mild pulmonary vascular prominence but no tita CHF. TECHNICAL DOCUMENTATION: JOB ID: [id number] [employer]- All Rights Reserved Reading location - IP/workstation name: [email or web address]
[2017-11-10 16:43] LABS: TROPONIN I 0.073 ng/mL
[2017-11-10] MEDS ORDERED: FUROSEMIDE INJ/PF 40 MG/4 ML SDV IV ONE (16:54)
--- NOTE | 2017-11-10 16:59 | ER Document Report ---
ED General - General Chief Complaint: Chest Pain Stated Complaint: CHEST PAIN Time Seen by Provider: 11/10/17 15:53 TRAVEL OUTSIDE OF THE [place] IN LAST 30 DAYS: No - HPI Patient complains to provider of: Weakness, shortness of breath, bilateral leg swelling Notes: 52-year-old man with history of congestive heart failure presents from his cardiology office with concern for CHF exacerbation. Patient endorses increasing shortness of breath, orthopnea and bilateral lower extremity edema. Patient also noticed that his eyes appear slightly yellow. He has no history of liver disease. Denies overt chest pain at this time. - Related Data Allergies/Adverse Reactions: cinnamon Allergy (Verified 11/10/17 14:10) morphine [Morphine] Adverse Reaction (Severe, Verified 11/10/17 14:10) itching Past Medical History - Social History Smoking Status: Former Smoker Chew tobacco use (# tins/day): No Frequency of alcohol use: None Drug Abuse: None Family History: CAD Patient has suicidal ideation: No Patient has homicidal ideation: No - Past Medical History Cardiac Medical History: Reports: Hx Congestive Heart Failure, Hx Coronary Artery Disease, Hx Heart Attack, Hx Hypertension Pulmonary Medical History: Reports: Hx COPD Renal/ Medical History: Denies: Hx Peritoneal Dialysis Skin Medical History: Comment Only Hx MRSA - MRSA 04/15 [facility] Psychiatric Medical History: Denies: Hx Depression Past Surgical History: Reports: Hx Cardiac Catheterization - with stent, Hx Internal Defibrillator, Hx PacemakerComment Only: Hx Cardiac Surgery - defib placement - Immunizations Hx Diphtheria, Pertussis, Tetanus Vaccination: No Review of Systems - Review of Systems Notes: REVIEW OF SYSTEMS: CONSTITUTIONAL: -fevers, -chills EENT: -eye pain, -difficulty swallowing, -nasal congestion CARDIOVASCULAR: -chest pain, -syncope. RESPIRATORY: Positive shortness of breath GASTROINTESTINAL: -abdominal pain, -nausea, -vomiting, -diarrhea GENITOURINARY: -dysuria, -hematuria MUSCULOSKELETAL: Positive bilateral pedal edema SKIN: -rash or skin lesions. HEMATOLOGIC: -easy bruising or bleeding. LYMPHATIC: -swollen, enlarged glands. NEUROLOGICAL: -altered mental status or loss of consciousness, -headache, - neurologic symptoms PSYCHIATRIC: -anxiety, -depression. ALL OTHER SYSTEMS REVIEWED AND NEGATIVE. Physical Exam - Vital signs Vitals: Temp Pulse Resp BP Pulse Ox 97.7 F 101 H 20 111/85 98 11/10/17 14:24 11/10/17 14:24 11/10/17 14:24 11/10/17 14:24 11/10/17 14:24 - Notes Notes: PHYSICAL EXAMINATION: GENERAL: Well-appearing, well-nourished and in no acute distress. HEAD: Atraumatic, normocephalic. EYES: Pupils equal round and reactive to light, extraocular movements intact, sclera anicteric, conjunctiva are normal. ENT: nares patent, oropharynx clear without exudates. Moist mucous membranes. NECK: Normal range of motion, supple without lymphadenopathy LUNGS: Bilateral basilar crackles HEART: Regular rate and rhythm without murmurs ABDOMEN: Soft, nontender, normoactive bowel sounds. No guarding, no rebound. No masses appreciated. EXTREMITIES: Bilateral pedal edema NEUROLOGICAL: Cranial nerves grossly intact. Normal speech, normal gait. Normal sensory and motor exams. PSYCH: Normal mood, normal affect. SKIN: Warm, Dry, normal turgor, no rashes or lesions noted. Course - Re-evaluation Re-evalutation: 11/10/17 17:07 52-year-old male history of CHF presents with profound CHF exacerbation. Patient's troponin negative, EKG is no ischemic changes. Patient given IV Lasix in the emergency department in diuresis. Patient will be admitted to the hospital Dr. Patrick will admit. - Vital Signs Vital signs: Temp Pulse Resp BP Pulse Ox 97.7 F 101 H 20 111/85 98 11/10/17 14:24 11/10/17 14:24 11/10/17 14:24 11/10/17 14:24 11/10/17 14:24 - Laboratory Result Diagrams: 11/10/17 16:00 11/10/17 16:00 Laboratory results interpreted by me: 11/10/17 11/10/17 11/10/17 16:00 16:00 16:00 RDW 17.2 H Sodium 127.8 L Potassium 5.2 H Chloride 94 L BUN 28 H Total Bilirubin 3.2 H Direct Bilirubin 1.0 H AST 73 H ALT 250 H NT-Pro-B Natriuret Pep 02822 H - EKG Interpretation by Me Additional EKG results interpreted by me: 11/10/17 17:01 Sinus tachycardia 102 bpm, left bundle branch block, no ST elevations or depressions, normal OH interval Discharge - Discharge Clinical Impression: Hyperbilirubinemia Congestive heart failure Qualifiers: Heart failure type: unspecified Heart failure chronicity: acute on chronic Qualified Code(s): I50.9 - Heart failure, unspecified Condition: Stable Disposition: ADMITTED INPATIENT Admitting Provider: Hospitalist - Dr. Patrick Unit Admitted: Medical Floor
[2017-11-10] MEDS ORDERED: LACTULOSE SYRUP 20 GM/30 ML UDCUP PO ONE (19:10)
[2017-11-10] MEDS ORDERED: MAG HYDROX/AL HYDROX/SIMETH SUSP 30 ML UDCUP PO PRN (19:10)
[2017-11-10] MEDS ORDERED: ACETAMINOPHEN 325 MG TABLET PO PRN (19:10)
[2017-11-10] MEDS ORDERED: MAGNESIUM HYDROXIDE SUSP 30 ML UDCUP PO PRN (19:10)
--- NOTE | 2017-11-10 21:57 | EKG REPORT ---
SEVERITY:- ABNORMAL ECG - SINUS TACHYCARDIA PROBABLE LEFT ATRIAL ABNORMALITY NONSPECIFIC IVCD WITH LAD : Confirmed by: Yany Smith 10-Nov-2017 21:57:16
[2017-11-10 22:20] LABS: ANION GAP 12 (5-19); BLOOD UREA NITROGEN 27 mg/dL (7-20); CALCIUM 9.2 mg/dL (8.4-10.2); CARBON DIOXIDE 24 mmol/L (22-30); CHLORIDE 96 mmol/L (98-107); GLUCOSE 104 mg/dL (75-110); POTASSIUM 4.3 mmol/L (3.6-5.0); SODIUM 131.8 mmol/L (137-145)
[2017-11-10] MEDS: FUROSEMIDE INJ/PF 40 MG/4 ML SDV IV SCH (23:51)
[2017-11-10] MEDS: CARVEDILOL 6.25 MG TABLET PO SCH (23:52)
[2017-11-10] MEDS: HEPARIN SOD (PORCINE) 5,000 UNIT/ML 1 ML SYRINGE SUBCUT SCH (23:52)
[2017-11-10] MEDS: ASPIRIN 81 MG TABLET, CHEWABLE PO SCH (23:52)
[2017-11-11] MEDS ORDERED: DIGOXIN 0.25 MG TABLET PO ONE ×2 (03:15→06:45)
--- NOTE | 2017-11-11 03:19 | PDOC H&P ---
History of Present Illness Admission Date/PCP: 11/10/17 17:20 NO LOCALMD Patient complains of: Shortness of breath History of Present Illness: KAPIL RUVALCABA is a 52 year old male with past medical history of congestive heart failure with an ejection fraction of 20% in 2014, status post pacemaker and multifactorial noncompliance secondary to diet lifestyle and medication noncompliance. Patient presents with several days of shortness of breath with exertion and generalized edema prompting follow-up with his primary program director/air personality Dr. Smith where he is found with significant congestive heart failure exacerbation referred to the emergency department. He is found to have tachycardia, hypotension, +3 edema, hyponatremia, LFT elevation and a BNP of 12, 000. He started on IV Lasix and referred to the hospitalist for admission. Patient admits to dietary and lifestyle indiscretion consuming fast food exclusively and greater than a half a gallon of water per day. Patient denies episodes chest pain. Past Medical History Cardiac Medical History: Reports: Congestive Heart Failure, Coronary Artery Disease, Myocardial Infarction, Hypertension Pulmonary Medical History: Reports: Chronic Obstructive Pulmonary Disease (COPD) EENT Medical History: Reports: None Neurological Medical History: Reports: None Endocrine Medical History: Reports: None Renal/ Medical History: Reports: None Malignancy Medical History: Reports: None GI Medical History: Reports: None Musculoskeltal Medical History: Reports: None Skin Medical History: Reports: None Psychiatric Medical History: Reports: None Denies: Depression Hematology: Reports: None Infectious Medical History: Reports: None Past Surgical History Past Surgical History: Reports: Cardiac Catheterization - with stent, Internal Defibrillator, Pacemaker Social History Information Source: Patient Lives with: Alone Smoking Status: Former Smoker Frequency of Alcohol Use: Rare Hx Recreational Drug Use: No Drugs: None Hx Prescription Drug Abuse: No - Advance Directive Resuscitation Status: Full Code Family History Family History: CAD Parental Family History Reviewed: Yes Children Family History Reviewed: Yes Sibling(s) Family History Reviewed.: Yes Medication/Allergy Home Medications: Aspirin [Aspirin 81 mg Chewable Tablet] 81 mg PO QID 11/10/17 Clopidogrel Bisulfate [Plavix 75 mg Tablet] 75 mg PO DAILY 11/10/17 Digoxin [Lanoxin] 250 mcg PO DAILY 11/10/17 Furosemide [Lasix 20 mg Tablet] 20 mg PO QAM 11/10/17 Allergies/Adverse Reactions: cinnamon Allergy (Verified 11/10/17 14:10) morphine [Morphine] Adverse Reaction (Severe, Verified 11/10/17 14:10) itching Review of Systems Constitutional: PRESENT: as per HPI, fatigue, weight gain. ABSENT: fever(s), headache(s), night sweats Eyes: ABSENT: visual disturbances Ears: ABSENT: hearing changes Cardiovascular: PRESENT: as per HPI, dyspnea on exertion, edema, orthropnea. ABSENT: chest pain, palpitations Respiratory: ABSENT: cough, hemoptysis Gastrointestinal: ABSENT: abdominal pain, constipation, diarrhea, hematemesis, hematochezia, nausea, vomiting Genitourinary: ABSENT: dysuria, hematuria Musculoskeletal: ABSENT: joint swelling Integumentary: PRESENT: erythema, lesions, rash. ABSENT: wounds Neurological: ABSENT: abnormal gait, abnormal speech, confusion, dizziness, focal weakness, syncope Psychiatric: ABSENT: anxiety, depression, homidical ideation, suicidal ideation Endocrine: ABSENT: cold intolerance, heat intolerance, polydipsia, polyuria Hematologic/Lymphatic: ABSENT: easy bleeding, easy bruising Physical Exam Vital Signs: Temp Pulse Resp BP Pulse Ox 97.7 F 101 H 18 105/87 H 93 11/10/17 14:24 11/10/17 14:24 11/10/17 22:01 11/10/17 22:01 11/10/17 22:01 Intake & Output 11/09/17 11/10/17 11/11/17 11:59 11:59 11:59 Output Total 800 Balance -800 General appearance: PRESENT: cooperative, disheveled, mild distress. ABSENT: hard of hearing Head exam: PRESENT: atraumatic, normocephalic Eye exam: PRESENT: conjunctiva pink, EOMI, PERRLA. ABSENT: scleral icterus Ear exam: PRESENT: normal external ear exam Mouth exam: PRESENT: moist, tongue midline Neck exam: PRESENT: full ROM, JVD, other - Positive hepatojugular reflux. ABSENT: carotid bruit, lymphadenopathy, thyromegaly Respiratory exam: PRESENT: accessory muscle use, clear to auscultation marek, crackles, prolonged expiratory phas, tachypnea. ABSENT: rales, rhonchi, wheezes Cardiovascular exam: PRESENT: gallop, +S1, +S2, tachycardia Pulses: PRESENT: normal dorsalis pedis pul Vascular exam: PRESENT: normal capillary refill GI/Abdominal exam: PRESENT: normal bowel sounds, soft. ABSENT: distended, guarding, mass, organolmegaly, rebound, tenderness Rectal exam: PRESENT: deferred Extremities exam: PRESENT: full ROM. ABSENT: calf tenderness, clubbing, pedal edema Neurological exam: PRESENT: alert, awake, oriented to person, oriented to place , oriented to time, oriented to situation, CN II-XII grossly intact. ABSENT: motor sensory deficit Psychiatric exam: PRESENT: appropriate affect, normal mood. ABSENT: homicidal ideation, suicidal ideation Skin exam: PRESENT: abrasion, dry, erythema, petechiae, warm. ABSENT: cyanosis , rash Results Laboratory Results: 11/10/17 21:55 11/10/17 21:55 Sodium 131.8 L Potassium 4.3 Chloride 96 L Carbon Dioxide 24 Anion Gap 12 BUN 27 H Creatinine 0.96 Est GFR ( Amer) > 60 Est GFR (Non-Af Amer) > 60 Glucose 104 Calcium 9.2 11/10/17 21:55 Troponin I 0.087 Impressions: Chest X-Ray 11/10/17 15:53 IMPRESSION: Cardiac enlargement with mild pulmonary vascular prominence but no tita CHF. Assessment & Plan - Diagnosis (1) Congestive heart failure Qualifiers: Heart failure type: unspecified Heart failure chronicity: acute on chronic Qualified Code(s): I50.9 - Heart failure, unspecified Is this a current diagnosis for this admission?: Yes Plan: Multifactorial decompensated end-stage heart failure. Telemetry bed, congestive heart failure care set, fluid restriction, diuresis and education. Add DEBBIE inhibitor as tolerated. (2) Hyperbilirubinemia Is this a current diagnosis for this admission?: Yes Plan: Most likely secondary to right-sided heart failure with hepatic congestion, however will evaluate for chronic viral hepatitis given risk factors. Follow- up hepatitis screen and LFTs (3) Non-compliance Is this a current diagnosis for this admission?: Yes Plan: Education and discharge planning (4) Tick bite Is this a current diagnosis for this admission?: Yes Plan: Tick bite with multiple erythemic, pruritic excoriations will trial doxycycline. - Time Time Spent: 50 to 70 Minutes - Inpatient Certification Medical Necessity: Need Close Monitoring Due to Risk of Patient Decompensation
[2017-11-11 04:01] LABS: ABSOLUTE BASOPHILS # (AUTO) 0.1 10^3/uL (0.0-0.2); ABSOLUTE EOSINOPHILS # (AUTO) 0.1 10^3/uL (0.0-0.6); ABSOLUTE LYMPHOCYTES (AUTO) 0.9 10^3/uL (0.5-4.7); ABSOLUTE MONOCYTES (AUTO) 0.4 10^3/uL (0.1-1.4); BASOPHILS % (AUTO) 1.1 % (0-2); EOSINOPHILS % (AUTO) 1.2 % (0-6); HEMATOCRIT 42.4 % (37.9-51.0); LYMPHOCYTES % (AUTO) 16.9 % (13-45); MEAN CORPUSCULAR HEMOGLOBIN 30.2 pg (27.0-33.4); MEAN CORPUSCULAR HGB CONC 33.1 g/dL (32.0-36.0); MEAN CORPUSCULAR VOLUME 91 fl (80-97); MONOCYTES % (AUTO) 7.8 % (3-13); PLATELET COUNT 179 10^3/uL (150-450); RED BLOOD COUNT 4.64 10^6/uL (4.35-5.55); RED CELL DISTRIBUTION WIDTH 17.3 % (11.5-14.0); TOTAL CELLS COUNTED % (AUTO) 100 %; WHITE BLOOD COUNT 5.5 10^3/uL (4.0-10.5)
[2017-11-11 04:16] LABS: ANION GAP 10 (5-19); BLOOD UREA NITROGEN 25 mg/dL (7-20); CALCIUM 8.6 mg/dL (8.4-10.2); CARBON DIOXIDE 23 mmol/L (22-30); CHLORIDE 100 mmol/L (98-107); CREATINE KINASE 60 U/L (55-170); GLUCOSE 92 mg/dL (75-110); POTASSIUM 3.9 mmol/L (3.6-5.0); SODIUM 132.9 mmol/L (137-145)
[2017-11-11 04:28] LABS: CREATINE KINASE MB 2.05 ng/mL (<4.55)
[2017-11-11 04:35] LABS: TROPONIN I 0.089 ng/mL
[2017-11-11] MEDS: HEPARIN SOD (PORCINE) 5,000 UNIT/ML 1 ML SYRINGE SUBCUT SCH ×3 (06:31→21:59)
[2017-11-11] MEDS: CLOPIDOGREL BISULFATE 75 MG TABLET PO SCH (10:18)
[2017-11-11] MEDS: DOXYCYCLINE HYCLATE 100 MG TABLET PO SCH ×2 (10:19→21:59)
[2017-11-11] MEDS: ASPIRIN 81 MG TABLET, CHEWABLE PO SCH ×4 (10:19→21:59)
[2017-11-11] MEDS: FUROSEMIDE INJ/PF 40 MG/4 ML SDV IV SCH ×2 (10:20→21:59)
[2017-11-11] MEDS: CARVEDILOL 6.25 MG TABLET PO SCH (10:23)
--- NOTE | 2017-11-11 11:07 | PDOC PROGRESS REPORT ---
Subjective Progress Note for:: 11/11/17 Subjective:: Patient presenting with CHF exacerbation. Patient has a history of noncompliance. Patient is lying flat in bed with no complaints at the time. Patient does not appear to be in distress. Nurse reports patient blood pressure being low in the 90s. Explained to her that as long as patient is having adequate urinary output will monitor considering patient has a history of congestive heart failure with significantly reduced EF. Reason For Visit: HYPERKALEMIA,TACHYCARDIA,HEART FAILURE Physical Exam Vital Signs: Temp Pulse Resp BP Pulse Ox 97.7 F 101 H 13 102/74 95 11/10/17 14:24 11/10/17 14:24 11/11/17 10:19 11/11/17 10:19 11/11/17 10:19 Intake & Output 11/10/17 11/11/17 11/12/17 06:59 06:59 06:59 Output Total 800 Balance -800 General appearance: PRESENT: no acute distress, well-developed, well-nourished Head exam: PRESENT: normocephalic Eye exam: PRESENT: EOMI. ABSENT: scleral icterus Ear exam: PRESENT: normal external ear exam Mouth exam: PRESENT: moist Neck exam: ABSENT: carotid bruit, JVD, lymphadenopathy, thyromegaly Respiratory exam: PRESENT: clear to auscultation marek. ABSENT: rales, rhonchi, wheezes Cardiovascular exam: PRESENT: RRR. ABSENT: diastolic murmur, rubs, systolic murmur GI/Abdominal exam: PRESENT: normal bowel sounds, soft. ABSENT: distended, guarding, mass, organolmegaly, rebound, tenderness Rectal exam: PRESENT: deferred Extremities exam: PRESENT: full ROM, +2 edema. ABSENT: calf tenderness, clubbing, pedal edema Neurological exam: PRESENT: alert, awake, oriented to person, oriented to place , oriented to time, oriented to situation, CN II-XII grossly intact. ABSENT: motor sensory deficit Psychiatric exam: PRESENT: appropriate affect, normal mood. ABSENT: homicidal ideation, suicidal ideation Skin exam: PRESENT: dry, intact, warm, other - Multiple superficial wounds on bilateral arms. ABSENT: cyanosis, rash Results Laboratory Results: 11/11/17 03:50 11/11/17 03:50 11/10/17 11/11/17 11/11/17 21:55 03:50 03:50 WBC 5.5 RBC 4.64 Hgb 14.0 Hct 42.4 MCV 91 MCH 30.2 MCHC 33.1 RDW 17.3 H Plt Count 179 Seg Neutrophils % 73.0 Lymphocytes % 16.9 Monocytes % 7.8 Eosinophils % 1.2 Basophils % 1.1 Absolute Neutrophils 4.0 Absolute Lymphocytes 0.9 Absolute Monocytes 0.4 Absolute Eosinophils 0.1 Absolute Basophils 0.1 Sodium 131.8 L 132.9 L Potassium 4.3 3.9 Chloride 96 L 100 Carbon Dioxide 24 23 Anion Gap 12 10 BUN 27 H 25 H Creatinine 0.96 0.94 Est GFR ( Amer) > 60 > 60 Est GFR (Non-Af Amer) > 60 > 60 Glucose 104 92 Calcium 9.2 8.6 11/10/17 11/11/17 11/11/17 21:55 03:50 03:50 Creatine Kinase 60 CK-MB (CK-2) 2.05 Troponin I 0.087 0.089 Impressions: Chest X-Ray 11/10/17 15:53 IMPRESSION: Cardiac enlargement with mild pulmonary vascular prominence but no tita CHF. Assessment & Plan - Diagnosis (1) Congestive heart failure Qualifiers: Heart failure type: unspecified Heart failure chronicity: acute on chronic Qualified Code(s): I50.9 - Heart failure, unspecified Is this a current diagnosis for this admission?: Yes Plan: Patient with acute on chronic systolic heart failure. Reported EF of 20%. Cardiac echo ordered. Patient currently on Lasix and metolazone. Patient blood pressures on the lower side of normal. Patient Coreg dose has been decreased to 3.125 mg p.o. twice daily. Patient not on DEBBIE and ARB for blood pressure may not be able to tolerate it at this time. Pressures may improve once patient is diuresed and load is taken off the heart. (2) Hyperbilirubinemia Is this a current diagnosis for this admission?: Yes Plan: Possibly secondary to hepatic congestion. Patient is also being evaluated for hepatitis. Patient total bilirubin was elevated at 3.2. Direct bili was elevated at 1.0. Will order ultrasound of the right upper quadrant. Will continue to monitor. (3) Transaminitis Plan: Patient with AST of 73 and ALT of 250 concerned that this may be due to hepatic congestion. Patient also being evaluated for viral hepatitis. Will order ultrasound of right upper quadrant and monitor. (4) Tick bite Is this a current diagnosis for this admission?: Yes Plan: Started on doxycycline. Also order Hibiclens. (5) Noncompliance with medication regimen Plan: Consultation noncompliance. (6) HLD (hyperlipidemia) Qualifiers: Hyperlipidemia type: mixed hyperlipidemia Qualified Code(s): E78.2 - Mixed hyperlipidemia Is this a current diagnosis for this admission?: Yes Plan: Hyperlipidemia. Patient currently not on statin. Hold off using statin while patient liver enzymes are elevated. - Time Time Spent with patient: Less than 15 minutes Anticipated discharge: Home Within: within 72 hours - Inpatient Certification Medical Necessity: Other - Patient with congestive heart failure currently on IV Lasix and significantly edematous. Patient needs close monitoring.
[2017-11-11 11:22] LABS: CREATINE KINASE MB 2.05 ng/mL (<4.55); TROPONIN I 0.095 ng/mL
[2017-11-11] MEDS ORDERED: MIDODRINE HCL 5 MG TABLET PO ONE (13:30)
[2017-11-11] MEDS: MIDODRINE HCL 5 MG TABLET PO SCH (17:51)
[2017-11-11] MEDS: METOLAZONE 2.5 MG TABLET PO SCH (17:51)
[2017-11-11] MEDS: CARVEDILOL 3.125 MG TABLET PO SCH (21:59)
[2017-11-12 01:16] LABS: ALANINE AMINOTRANSFERASE 167 U/L (21-72); ALBUMIN 3.1 g/dL (3.5-5.0); ALKALINE PHOSPHATASE 64 U/L (38-126); ANION GAP 9 (5-19); ASPARTATE AMINO TRANSFERASE 48 U/L (17-59); BILIRUBIN,DIRECT 1.1 mg/dL (0.0-0.4); BILIRUBIN,TOTAL 2.3 mg/dL (0.2-1.3); BLOOD UREA NITROGEN 27 mg/dL (7-20); CALCIUM 8.9 mg/dL (8.4-10.2); CARBON DIOXIDE 25 mmol/L (22-30); CHLORIDE 98 mmol/L (98-107); GLUCOSE 103 mg/dL (75-110); POTASSIUM 3.7 mmol/L (3.6-5.0); SODIUM 132.2 mmol/L (137-145); TOTAL PROTEIN 5.8 g/dL (6.3-8.2)
[2017-11-12] MEDS: MAGNESIUM SULFATE 1 GM/D5W 100 ML IV SCH ×2 (01:58→03:11)
[2017-11-12 05:40] LABS: HEPATITIS A AB IGM Negative (Negative); HEPATITIS B CORE AB IGM Negative (Negative); HEPATITS B SURFACE ANTIGEN Negative (Negative)
[2017-11-12] MEDS: HEPARIN SOD (PORCINE) 5,000 UNIT/ML 1 ML SYRINGE SUBCUT SCH ×3 (05:50→22:09)
[2017-11-12] MEDS: MIDODRINE HCL 5 MG TABLET PO SCH ×3 (05:50→17:00)
[2017-11-12 07:03] LABS: HEPATITIS C VIRUS ANTIBODY <0.1 s/co ratio (0.0-0.9)
--- NOTE | 2017-11-12 08:49 | RADIOLOGY REPORT (SQ) ---
EXAM DESCRIPTION: U/S ABDOMEN LIMITED W/O DOP COMPLETED DATE/TIME: 11/12/2017 7:07 am REASON FOR STUDY: Trasaminitis COMPARISON: None. TECHNIQUE: Dynamic and static grayscale images acquired of the abdomen and recorded on PACS. Additio nal selected color Doppler and spectral images recorded. LIMITATIONS: None. FINDINGS: PANCREAS: No masses. Visualized pancreatic duct normal caliber. LIVER: No focal lesions are detected. There is perihepatic fluid. LIVER VASCULATURE: Normal directional flow of the main portal vein and hepatic veins. GALLBLADDER: Mildly distended. Echogenic shadowing nonmobile foci consistent with cholelithiasis. N o evidence of wall thickening. ULTRASOUND-DETECTED PEPPER'S SIGN: Negative. INTRAHEPATIC DUCTS AND COMMON DUCT: CBD and intrahepatic ducts normal caliber. No filling defects. INFERIOR VENA CAVA: Normal flow. AORTA: No aneurysm. RIGHT KIDNEY: Normal size. Normal echogenicity. No solid or suspicious masses. No hydronephrosis. No calcifications. PERITONEAL AND RIGHT PLEURAL SPACE: Perisplenic, perihepatic ascites. OTHER: No other significant findings. IMPRESSION: 1. Ascites. 2. Cholelithiasis. TECHNICAL DOCUMENTATION: JOB ID: [id number] [employer]- All Rights Reserved Reading location - IP/workstation name: [email or web address]
[2017-11-12 08:54] LABS: ANION GAP 9 (5-19); BLOOD UREA NITROGEN 25 mg/dL (7-20); CALCIUM 8.9 mg/dL (8.4-10.2); CARBON DIOXIDE 28 mmol/L (22-30); CHLORIDE 96 mmol/L (98-107); GLUCOSE 145 mg/dL (75-110); POTASSIUM 3.2 mmol/L (3.6-5.0); SODIUM 133.1 mmol/L (137-145)
[2017-11-12] MEDS ORDERED: POTASSIUM CHLORIDE 10 MEQ TABLET.SA PO SCH (10:00)
[2017-11-12] MEDS: CARVEDILOL 3.125 MG TABLET PO SCH (10:12)
[2017-11-12] MEDS: DIGOXIN 0.25 MG TABLET PO SCH (10:36)
[2017-11-12] MEDS: CLOPIDOGREL BISULFATE 75 MG TABLET PO SCH (10:36)
[2017-11-12] MEDS: DOXYCYCLINE HYCLATE 100 MG TABLET PO SCH ×2 (10:36→21:51)
[2017-11-12] MEDS: ASPIRIN 81 MG TABLET, CHEWABLE PO SCH ×4 (10:36→21:52)
[2017-11-12] MEDS: FUROSEMIDE INJ/PF 40 MG/4 ML SDV IV SCH ×2 (10:36→21:54)
--- NOTE | 2017-11-12 13:42 | PDOC PROGRESS REPORT ---
Subjective Progress Note for:: 11/12/17 Subjective:: Patient states he feeling much better today. Patient states the swelling has improved. Reason For Visit: HYPERKALEMIA,TACHYCARDIA,HEART FAILURE Physical Exam Vital Signs: Temp Pulse Resp BP Pulse Ox 97.4 F 82 16 95/78 L 97 11/12/17 09:13 11/12/17 09:13 11/12/17 09:13 11/12/17 09:13 11/12/17 09:13 Intake & Output 11/11/17 11/12/17 11/13/17 06:59 06:59 06:59 Intake Total 996 Output Total 800 2100 Balance -800 -1104 Weight 97.9 kg General appearance: PRESENT: no acute distress, well-developed, well-nourished Head exam: PRESENT: normocephalic Eye exam: PRESENT: EOMI. ABSENT: scleral icterus Ear exam: PRESENT: normal external ear exam Mouth exam: PRESENT: moist Neck exam: ABSENT: carotid bruit, JVD, lymphadenopathy, thyromegaly Respiratory exam: PRESENT: clear to auscultation marek. ABSENT: rales, rhonchi, wheezes Cardiovascular exam: PRESENT: RRR. ABSENT: diastolic murmur, rubs, systolic murmur GI/Abdominal exam: PRESENT: normal bowel sounds, soft. ABSENT: distended, guarding, mass, organolmegaly, rebound, tenderness Rectal exam: PRESENT: deferred Extremities exam: PRESENT: full ROM, pedal edema. ABSENT: calf tenderness, clubbing Neurological exam: PRESENT: alert, awake, oriented to person, oriented to place , oriented to time, oriented to situation, CN II-XII grossly intact. ABSENT: motor sensory deficit Psychiatric exam: PRESENT: appropriate affect, normal mood. ABSENT: homicidal ideation, suicidal ideation Skin exam: PRESENT: dry, intact, warm, other - Scabs on his arms and legs. ABSENT: cyanosis, rash Results Laboratory Results: 11/11/17 03:50 11/12/17 08:26 11/12/17 11/12/17 00:53 08:26 Sodium 132.2 L 133.1 L Potassium 3.7 3.2 L Chloride 98 96 L Carbon Dioxide 25 28 Anion Gap 9 9 BUN 27 H 25 H Creatinine 1.11 1.03 Est GFR ( Amer) > 60 > 60 Est GFR (Non-Af Amer) > 60 > 60 Glucose 103 145 H Calcium 8.9 8.9 Magnesium 1.6 1.9 Total Bilirubin 2.3 H AST 48 ALT 167 H Alkaline Phosphatase 64 Total Protein 5.8 L Albumin 3.1 L 11/10/17 11/11/17 11/11/17 21:55 03:50 03:50 Creatine Kinase 60 CK-MB (CK-2) 2.05 Troponin I 0.087 0.089 11/11/17 11/11/17 10:39 10:39 Creatine Kinase 56 CK-MB (CK-2) 2.05 Troponin I 0.095 Impressions: Chest X-Ray 11/10/17 15:53 IMPRESSION: Cardiac enlargement with mild pulmonary vascular prominence but no tita CHF. Abdomen Ultrasound 11/11/17 00:00 IMPRESSION: 1. Ascites. 2. Cholelithiasis. Assessment & Plan - Diagnosis (1) Congestive heart failure Qualifiers: Heart failure type: unspecified Heart failure chronicity: acute on chronic Qualified Code(s): I50.9 - Heart failure, unspecified Is this a current diagnosis for this admission?: Yes Plan: Patient with acute on chronic systolic heart failure. Reported EF of 20%. Cardiac echo ordered. Patient currently on digoxin, lasix and metolazone. Patient cannot tolerate beta pato or ACEI/ARB at this time due to hypotension. (2) Hyperbilirubinemia Is this a current diagnosis for this admission?: Yes Plan: Likely due to hepatic congestion due to CHF exacerbation. Patient total bili is actually trending down. We will continue to monitor and treat patient congestive heart failure exacerbation. (3) Transaminitis Plan: Is likely due to hepatic congestion secondary to CHF exacerbation. Patient LFTs are actually improving with treatment of CHF exacerbation. (4) Tick bite Is this a current diagnosis for this admission?: Yes Plan: Continue doxycycline. (5) Noncompliance with medication regimen Plan: Patient to be counseled on noncompliance. (6) HLD (hyperlipidemia) Qualifiers: Hyperlipidemia type: mixed hyperlipidemia Qualified Code(s): E78.2 - Mixed hyperlipidemia Is this a current diagnosis for this admission?: Yes Plan: Hyperlipidemia. Patient currently not on statin. Hold off using statin while patient liver enzymes are elevated. (7) Hyponatremia Plan: Patient hyponatremia most likely due to volume overload compared to his CHF exacerbation. Patient sodium is gradually trending up as patient is being diuresed. (8) Hypokalemia Is this a current diagnosis for this admission?: Yes Plan: Secondary to diuretics. Will start patient on 20 mEq of potassium twice a day. Will monitor. (9) Hypotension Is this a current diagnosis for this admission?: Yes Plan: Is chronically hypotensive but is asymptomatic. Patient started on midodrine 5mg po TID so that he can tolerate being diuresed in addition to other cardiac medications. - Time Time Spent with patient: Less than 15 minutes Anticipated discharge: Home Within: within 48 hours - Inpatient Certification Medical Necessity: Significant Comorbidiites Make Outpatient Treatment Too Risky - Patient still volume overloaded and needs to be diuresed with IV lasix. , Need Close Monitoring Due to Risk of Patient Decompensation
[2017-11-12] MEDS: POTASSIUM CHLORIDE 10 MEQ TABLET.SA PO SCH (16:59)
[2017-11-12] MEDS ORDERED: METOPROLOL TARTRATE PF/INJ 5 MG/5 ML SDV IV PRN (18:16)
[2017-11-12] MEDS ORDERED: METOPROLOL TARTRATE PF/INJ 5 MG/5 ML SDV IV ONE (18:17)
[2017-11-12] MEDS ORDERED: MIDODRINE HCL 5 MG TABLET PO ONE (19:00)
[2017-11-13] MEDS: HEPARIN SOD (PORCINE) 5,000 UNIT/ML 1 ML SYRINGE SUBCUT SCH ×3 (05:50→21:27)
[2017-11-13 06:23] LABS: ALANINE AMINOTRANSFERASE 136 U/L (21-72); ALBUMIN 3.3 g/dL (3.5-5.0); ALKALINE PHOSPHATASE 67 U/L (38-126); ANION GAP 9 (5-19); ASPARTATE AMINO TRANSFERASE 32 U/L (17-59); BILIRUBIN,DIRECT 0.9 mg/dL (0.0-0.4); BLOOD UREA NITROGEN 25 mg/dL (7-20); CARBON DIOXIDE 31 mmol/L (22-30); CHLORIDE 93 mmol/L (98-107); GLUCOSE 88 mg/dL (75-110); POTASSIUM 3.4 mmol/L (3.6-5.0); SODIUM 132.7 mmol/L (137-145); TOTAL PROTEIN 5.7 g/dL (6.3-8.2)
[2017-11-13] MEDS ORDERED: MIDODRINE HCL 5 MG TABLET PO SCH (10:00)
[2017-11-13] MEDS ORDERED: POTASSIUM CHLORIDE 10 MEQ TABLET.SA PO ONE (10:30)
[2017-11-13] MEDS: FUROSEMIDE INJ/PF 40 MG/4 ML SDV IV SCH ×2 (10:57→21:27)
[2017-11-13] MEDS: MIDODRINE HCL 5 MG TABLET PO SCH ×3 (10:57→19:00)
[2017-11-13] MEDS: ASPIRIN 81 MG TABLET, CHEWABLE PO SCH ×4 (10:57→21:25)
[2017-11-13] MEDS: MAGNESIUM SULFATE/D5W 1 GM/100 ML RTUPB IV SCH ×2 (10:58→12:17)
[2017-11-13] MEDS: DOXYCYCLINE HYCLATE 100 MG TABLET PO SCH ×2 (10:58→21:25)
[2017-11-13] MEDS: METOLAZONE 2.5 MG TABLET PO SCH (10:58)
[2017-11-13] MEDS: DIGOXIN 0.25 MG TABLET PO SCH (10:58)
[2017-11-13] MEDS: CARVEDILOL 3.125 MG TABLET PO SCH ×2 (10:58→21:25)
[2017-11-13] MEDS: CLOPIDOGREL BISULFATE 75 MG TABLET PO SCH (10:58)
[2017-11-13] MEDS: POTASSIUM CHLORIDE 10 MEQ TABLET.SA PO SCH ×2 (11:34→19:02)
[2017-11-13] MEDS ORDERED: METOLAZONE 2.5 MG TABLET PO SCH (14:04)
--- NOTE | 2017-11-13 14:12 | PDOC PROGRESS REPORT ---
Subjective Progress Note for:: 11/13/17 Subjective:: Patient is doing better. Patient has increased swelling due to sitting with his legs hanging down. Patient feels as if things are getting better. Reason For Visit: HYPERKALEMIA,TACHYCARDIA,HEART FAILURE Physical Exam Vital Signs: Temp Pulse Resp BP Pulse Ox 97.9 F 92 18 113/94 H 98 11/13/17 12:00 11/13/17 12:00 11/13/17 12:00 11/13/17 12:00 11/13/17 12:00 Intake & Output 11/12/17 11/13/17 11/14/17 06:59 06:59 06:59 Intake Total 996 2411 Output Total 2100 1550 Balance -1104 861 Weight 97.9 kg 97.3 kg General appearance: PRESENT: no acute distress, well-developed, well-nourished Head exam: PRESENT: normocephalic Eye exam: PRESENT: EOMI. ABSENT: scleral icterus Ear exam: PRESENT: normal external ear exam Mouth exam: PRESENT: moist Neck exam: ABSENT: carotid bruit, JVD, lymphadenopathy, thyromegaly Respiratory exam: PRESENT: clear to auscultation marek. ABSENT: rales, rhonchi, wheezes Cardiovascular exam: PRESENT: RRR. ABSENT: diastolic murmur, rubs, systolic murmur GI/Abdominal exam: PRESENT: soft. ABSENT: distended, guarding, mass, organolmegaly, rebound, tenderness Rectal exam: PRESENT: deferred Extremities exam: PRESENT: full ROM. ABSENT: calf tenderness, clubbing, pedal edema Neurological exam: PRESENT: alert, awake, oriented to person, oriented to place , oriented to time, oriented to situation, CN II-XII grossly intact. ABSENT: motor sensory deficit Psychiatric exam: PRESENT: appropriate affect, normal mood. ABSENT: homicidal ideation, suicidal ideation Skin exam: PRESENT: dry, intact, warm, other - Sores on his arms and legs.. ABSENT: cyanosis, rash Results Laboratory Results: 11/11/17 03:50 11/13/17 05:32 11/13/17 05:32 Sodium 132.7 L Potassium 3.4 L Chloride 93 L Carbon Dioxide 31 H Anion Gap 9 BUN 25 H Creatinine 1.04 Est GFR ( Amer) > 60 Est GFR (Non-Af Amer) > 60 Glucose 88 Calcium 9.0 Magnesium 1.7 Total Bilirubin 2.0 H AST 32 ALT 136 H Alkaline Phosphatase 67 Total Protein 5.7 L Albumin 3.3 L 11/10/17 11/11/17 11/11/17 21:55 03:50 03:50 Creatine Kinase 60 CK-MB (CK-2) 2.05 Troponin I 0.087 0.089 11/11/17 11/11/17 10:39 10:39 Creatine Kinase 56 CK-MB (CK-2) 2.05 Troponin I 0.095 Impressions: Chest X-Ray 11/10/17 15:53 IMPRESSION: Cardiac enlargement with mild pulmonary vascular prominence but no tita CHF. Abdomen Ultrasound 11/11/17 00:00 IMPRESSION: 1. Ascites. 2. Cholelithiasis. Assessment & Plan - Diagnosis (1) Congestive heart failure Qualifiers: Heart failure type: combined systolic and diastolic Heart failure chronicity: acute on chronic Qualified Code(s): I50.43 - Acute on chronic combined systolic (congestive) and diastolic (congestive) heart failure Is this a current diagnosis for this admission?: Yes Plan: Patient with acute on chronic systolic heart failure. Reported EF of 20%. Cardiac echo ordered. Patient currently on digoxin, lasix and metolazone. Patient restarted on his Coreg. Patient blood pressure may not be able to tolerate a ACEI or an ARB. (2) Hyperbilirubinemia Is this a current diagnosis for this admission?: Yes Plan: Likely due to hepatic congestion due to CHF exacerbation. Patient total bili continue to trend down. (3) Transaminitis Plan: Is likely due to hepatic congestion secondary to CHF exacerbation. These are trending down. Patient hepatic panel is negative. Ultrasound shows cystitis and cholelithiasis. (4) Tick bite Is this a current diagnosis for this admission?: Yes Plan: Continue doxycycline. (5) Noncompliance with medication regimen Plan: Patient to be counseled on noncompliance. (6) HLD (hyperlipidemia) Qualifiers: Hyperlipidemia type: mixed hyperlipidemia Qualified Code(s): E78.2 - Mixed hyperlipidemia Is this a current diagnosis for this admission?: Yes Plan: Hyperlipidemia. Patient currently not on statin. Hold off using statin while patient liver enzymes are elevated. (7) Hyponatremia Plan: Patient hyponatremia most likely due to volume overload compared to his CHF exacerbation. There was about the same today. We will continue diuretics and monitoring. (8) Hypokalemia Is this a current diagnosis for this admission?: Yes Plan: Secondary to diuretics. Patient given 60mEQ of potassium today. Will follow up. (9) Hypotension Is this a current diagnosis for this admission?: Yes Plan: Is chronically hypotensive but is asymptomatic. Midodrine increased to 10mg po TID to help increase the blood pressure slightly so that patient can tolerate his medications. - Time Time Spent with patient: Less than 15 minutes Anticipated discharge: Home Within: within 24 hours - Inpatient Certification Medical Necessity: Other - Patient still on IV lasix with significant edema.
[2017-11-14] MEDS: HEPARIN SOD (PORCINE) 5,000 UNIT/ML 1 ML SYRINGE SUBCUT SCH ×3 (05:34→22:09)
[2017-11-14 07:23] LABS: ALANINE AMINOTRANSFERASE 118 U/L (21-72); ALBUMIN 3.4 g/dL (3.5-5.0); ALKALINE PHOSPHATASE 74 U/L (38-126); ANION GAP 12 (5-19); ASPARTATE AMINO TRANSFERASE 32 U/L (17-59); BILIRUBIN,DIRECT 0.8 mg/dL (0.0-0.4); BILIRUBIN,TOTAL 1.9 mg/dL (0.2-1.3); BLOOD UREA NITROGEN 26 mg/dL (7-20); CALCIUM 9.2 mg/dL (8.4-10.2); CARBON DIOXIDE 28 mmol/L (22-30); CHLORIDE 94 mmol/L (98-107); GLUCOSE 92 mg/dL (75-110); POTASSIUM 3.9 mmol/L (3.6-5.0); SODIUM 133.5 mmol/L (137-145); TOTAL PROTEIN 5.8 g/dL (6.3-8.2)
[2017-11-14] MEDS: FUROSEMIDE INJ/PF 40 MG/4 ML SDV IV SCH ×2 (09:45→22:05)
[2017-11-14] MEDS: POTASSIUM CHLORIDE 10 MEQ TABLET.SA PO SCH ×2 (09:54→18:31)
[2017-11-14] MEDS: CLOPIDOGREL BISULFATE 75 MG TABLET PO SCH (09:55)
[2017-11-14] MEDS: CARVEDILOL 3.125 MG TABLET PO SCH ×2 (09:56→22:05)
[2017-11-14] MEDS: ASPIRIN 81 MG TABLET, CHEWABLE PO SCH ×4 (09:57→22:05)
[2017-11-14] MEDS: DIGOXIN 0.25 MG TABLET PO SCH (09:57)
[2017-11-14] MEDS: METOLAZONE 5 MG TABLET PO SCH (09:58)
[2017-11-14] MEDS: DOXYCYCLINE HYCLATE 100 MG TABLET PO SCH ×2 (09:58→22:05)
[2017-11-14] MEDS: MIDODRINE HCL 5 MG TABLET PO SCH ×3 (09:58→18:31)
[2017-11-14] MEDS ORDERED: MAGNESIUM OXIDE 400 MG TABLET PO ONE (12:47)
--- NOTE | 2017-11-14 13:12 | PDOC PROGRESS REPORT ---
Subjective Progress Note for:: 11/14/17 Subjective:: Patient is doing better. Patient having increased swelling. Patient doses of Lasix have been held due to his low blood pressure. Patient is having increased pedal edema especially with standing or walking. Reason For Visit: HYPERKALEMIA,TACHYCARDIA,HEART FAILURE Physical Exam Vital Signs: Temp Pulse Resp BP Pulse Ox 98.6 F 81 16 105/74 97 11/14/17 07:59 11/14/17 07:59 11/14/17 07:59 11/14/17 07:59 11/14/17 07:59 Intake & Output 11/13/17 11/14/17 11/15/17 06:59 06:59 06:59 Intake Total 2411 2240 Output Total 1550 2230 Balance 861 10 Weight 97.3 kg 85.1 kg General appearance: PRESENT: no acute distress, well-developed, well-nourished Head exam: PRESENT: normocephalic Eye exam: PRESENT: EOMI. ABSENT: scleral icterus Ear exam: PRESENT: normal external ear exam Mouth exam: PRESENT: moist Neck exam: ABSENT: carotid bruit, JVD, lymphadenopathy, thyromegaly Respiratory exam: PRESENT: clear to auscultation marek. ABSENT: rales, rhonchi, wheezes Cardiovascular exam: PRESENT: RRR. ABSENT: diastolic murmur, rubs, systolic murmur GI/Abdominal exam: PRESENT: normal bowel sounds, soft. ABSENT: distended, guarding, mass, organolmegaly, rebound, tenderness Rectal exam: PRESENT: deferred Extremities exam: PRESENT: full ROM, pedal edema. ABSENT: calf tenderness, clubbing Neurological exam: PRESENT: alert, awake, oriented to person, oriented to place , oriented to time, oriented to situation, CN II-XII grossly intact. ABSENT: motor sensory deficit Psychiatric exam: PRESENT: appropriate affect, normal mood. ABSENT: homicidal ideation, suicidal ideation Skin exam: PRESENT: dry, intact, warm, other - Patient has sores on his arms and legs with scabs.. ABSENT: cyanosis, rash Results Laboratory Results: 11/11/17 03:50 11/14/17 06:27 11/14/17 06:27 Sodium 133.5 L Potassium 3.9 Chloride 94 L Carbon Dioxide 28 Anion Gap 12 BUN 26 H Creatinine 0.96 Est GFR ( Amer) > 60 Est GFR (Non-Af Amer) > 60 Glucose 92 Calcium 9.2 Magnesium 1.9 Total Bilirubin 1.9 H AST 32 ALT 118 H Alkaline Phosphatase 74 Total Protein 5.8 L Albumin 3.4 L 11/10/17 11/11/17 11/11/17 21:55 03:50 03:50 Creatine Kinase 60 CK-MB (CK-2) 2.05 Troponin I 0.087 0.089 11/11/17 11/11/17 10:39 10:39 Creatine Kinase 56 CK-MB (CK-2) 2.05 Troponin I 0.095 Impressions: Chest X-Ray 11/10/17 15:53 IMPRESSION: Cardiac enlargement with mild pulmonary vascular prominence but no tita CHF. Abdomen Ultrasound 11/11/17 00:00 IMPRESSION: 1. Ascites. 2. Cholelithiasis. Assessment & Plan - Diagnosis (1) Congestive heart failure Qualifiers: Heart failure type: combined systolic and diastolic Heart failure chronicity: acute on chronic Qualified Code(s): I50.43 - Acute on chronic combined systolic (congestive) and diastolic (congestive) heart failure Is this a current diagnosis for this admission?: Yes Plan: Patient with acute on chronic systolic heart failure. Reported EF of 20%. Cardiac echo ordered. Patient currently on digoxin, lasix and metolazone. Patient restarted on his Coreg. Patient blood pressure may not be able to tolerate a ACEI or an ARB. FORD hose being applied help with the dependent pedal edema. (2) Hyperbilirubinemia Is this a current diagnosis for this admission?: Yes Plan: Likely due to hepatic congestion due to CHF exacerbation. Total bili continues to trend down. (3) Transaminitis Plan: Is likely due to hepatic congestion secondary to CHF exacerbation. AST is normal while ALT continues to trend downward. Patient hepatitis panel is negative. Ultrasound shows cystitis and cholelithiasis. (4) Tick bite Is this a current diagnosis for this admission?: Yes Plan: Patient has scabbed over lesions on his arms and legs. Patient may pick at his skin and is at risk for secondary infection.. Continue doxycycline. (5) Noncompliance with medication regimen Plan: Patient to be counseled on noncompliance. (6) HLD (hyperlipidemia) Qualifiers: Hyperlipidemia type: mixed hyperlipidemia Qualified Code(s): E78.2 - Mixed hyperlipidemia Is this a current diagnosis for this admission?: Yes Plan: Hyperlipidemia. Patient currently not on statin. Hold off using statin while patient liver enzymes are elevated. Consider starting statin on discharge. (7) Hyponatremia Plan: Patient hyponatremia most likely due to volume overload. Sodium is trending upwards since patient has been placed on diuretics with fluid restriction. We will continue to monitor. (8) Hypokalemia Is this a current diagnosis for this admission?: Yes Plan: Secondary to diuretics. Resolved. Continue to monitor and replace. (9) Hypotension Is this a current diagnosis for this admission?: Yes Plan: Is chronically hypotensive but is asymptomatic. Continue midodrine 10mg po TID. - Time Time Spent with patient: Less than 15 minutes Anticipated discharge: Home Within: within 24 hours - Inpatient Certification Medical Necessity: Other - Patient volume status is still being managed.
[2017-11-15] MEDS: HEPARIN SOD (PORCINE) 5,000 UNIT/ML 1 ML SYRINGE SUBCUT SCH ×3 (06:11→21:37)
[2017-11-15] MEDS: FUROSEMIDE INJ/PF 40 MG/4 ML SDV IV SCH ×2 (09:36→21:34)
[2017-11-15] MEDS: POTASSIUM CHLORIDE 10 MEQ TABLET.SA PO SCH ×2 (09:37→17:34)
[2017-11-15] MEDS: ASPIRIN 81 MG TABLET, CHEWABLE PO SCH ×4 (09:37→21:34)
[2017-11-15] MEDS: CLOPIDOGREL BISULFATE 75 MG TABLET PO SCH (09:37)
[2017-11-15] MEDS: CARVEDILOL 3.125 MG TABLET PO SCH ×2 (09:38→21:34)
[2017-11-15] MEDS: DOXYCYCLINE HYCLATE 100 MG TABLET PO SCH ×2 (09:38→21:34)
[2017-11-15] MEDS: DIGOXIN 0.25 MG TABLET PO SCH (09:38)
[2017-11-15] MEDS: MIDODRINE HCL 5 MG TABLET PO SCH ×3 (09:38→17:34)
[2017-11-15] MEDS: METOLAZONE 5 MG TABLET PO SCH (09:39)
[2017-11-15] MEDS: MAGNESIUM OXIDE 400 MG TABLET PO SCH (09:39)
--- NOTE | 2017-11-15 19:14 | PDOC PROGRESS REPORT ---
Subjective Progress Note for:: 11/15/17 Subjective:: Patient is breathing fine. He feels that his edema is improving. His energy level is not very good. He is eating and drinking fairly well. No nausea vomiting. No dysuria. Reason For Visit: HYPERKALEMIA,TACHYCARDIA,HEART FAILURE Physical Exam Vital Signs: Temp Pulse Resp BP Pulse Ox 97.9 F 76 13 97/71 L 98 11/15/17 16:17 11/15/17 16:17 11/15/17 16:17 11/15/17 16:17 11/15/17 16:17 Intake & Output 11/14/17 11/15/17 11/16/17 06:59 06:59 07:59 Intake Total 2240 1290 800 Output Total 2230 2430 450 Balance 10 -1140 350 Weight 85.1 kg 85.1 kg General appearance: PRESENT: no acute distress, cooperative Eye exam: PRESENT: conjunctiva pink Mouth exam: PRESENT: moist Respiratory exam: PRESENT: clear to auscultation marek. ABSENT: rales, rhonchi, wheezes Cardiovascular exam: PRESENT: RRR, systolic murmur GI/Abdominal exam: PRESENT: normal bowel sounds, soft. ABSENT: distended, guarding, tenderness Extremities exam: PRESENT: +1 edema Neurological exam: PRESENT: alert, awake, oriented to person, oriented to place , oriented to situation, CN II-XII grossly intact Psychiatric exam: PRESENT: appropriate affect. ABSENT: anxious Skin exam: PRESENT: dry, warm Results Laboratory Results: 11/11/17 03:50 11/14/17 06:27 11/10/17 11/11/17 11/11/17 21:55 03:50 03:50 Creatine Kinase 60 CK-MB (CK-2) 2.05 Troponin I 0.087 0.089 11/11/17 11/11/17 10:39 10:39 Creatine Kinase 56 CK-MB (CK-2) 2.05 Troponin I 0.095 Impressions: Chest X-Ray 11/10/17 15:53 IMPRESSION: Cardiac enlargement with mild pulmonary vascular prominence but no tita CHF. Abdomen Ultrasound 11/11/17 00:00 IMPRESSION: 1. Ascites. 2. Cholelithiasis. Assessment & Plan - Diagnosis (1) Congestive heart failure Qualifiers: Heart failure type: combined systolic and diastolic Heart failure chronicity: acute on chronic Qualified Code(s): I50.43 - Acute on chronic combined systolic (congestive) and diastolic (congestive) heart failure Is this a current diagnosis for this admission?: Yes Plan: Patient is resolving from an acute exacerbation of his systolic and diastolic CHF, EF of 20%. He has been restarted on his Coreg. His Lasix and metolazone will continue. (2) Hyperbilirubinemia Is this a current diagnosis for this admission?: Yes Plan: Secondary to hepatic congestion with CHF, bilirubin trending down. (3) Hypokalemia Is this a current diagnosis for this admission?: Yes Plan: Potassium 3.9 today. Will recheck in the morning. Also check magnesium. (4) Hyponatremia Is this a current diagnosis for this admission?: Yes Plan: Secondary to CHF. Improving with diuresis. (5) Hypotension Is this a current diagnosis for this admission?: Yes Plan: Stable hypotension, asymptomatic, will continue on his cardiac meds which are likely the culprit of his hypotension. (6) Tick bite Is this a current diagnosis for this admission?: Yes Plan: 2 continue doxycycline for 14 days. (7) Transaminitis Is this a current diagnosis for this admission?: Yes Plan: Secondary to hepatic congestion from CHF exacerbation. Liver enzymes trending down. - Time Time Spent with patient: 15-24 minutes Anticipated discharge: Home - Inpatient Certification Medical Necessity: Need Close Monitoring Due to Risk of Patient Decompensation, Risk of Complication if Not Cared For in Hospital
[2017-11-16 05:09] LABS: ANION GAP 11 (5-19); BLOOD UREA NITROGEN 29 mg/dL (7-20); CALCIUM 9.2 mg/dL (8.4-10.2); CARBON DIOXIDE 34 mmol/L (22-30); CHLORIDE 90 mmol/L (98-107); GLUCOSE 91 mg/dL (75-110); POTASSIUM 3.3 mmol/L (3.6-5.0); SODIUM 134.7 mmol/L (137-145)
[2017-11-16] MEDS: HEPARIN SOD (PORCINE) 5,000 UNIT/ML 1 ML SYRINGE SUBCUT SCH (05:26)
[2017-11-16] MEDS: CLOPIDOGREL BISULFATE 75 MG TABLET PO SCH (10:12)
[2017-11-16] MEDS: METOLAZONE 5 MG TABLET PO SCH (10:13)
[2017-11-16] MEDS: FUROSEMIDE 40 MG TABLET PO SCH ×2 (10:13→17:46)
[2017-11-16] MEDS: MAGNESIUM OXIDE 400 MG TABLET PO SCH (10:13)
[2017-11-16] MEDS: ASPIRIN 81 MG TABLET, CHEWABLE PO SCH (10:13)
[2017-11-16] MEDS: DOXYCYCLINE HYCLATE 100 MG TABLET PO SCH ×2 (10:14→21:11)
[2017-11-16] MEDS: DIGOXIN 0.25 MG TABLET PO SCH (10:14)
[2017-11-16] MEDS: CARVEDILOL 3.125 MG TABLET PO SCH ×2 (10:14→21:11)
[2017-11-16] MEDS: POTASSIUM CHLORIDE 10 MEQ TABLET.SA PO SCH ×2 (10:14→17:47)
[2017-11-16] MEDS: MIDODRINE HCL 5 MG TABLET PO SCH ×3 (10:14→17:47)
[2017-11-16] MEDS ORDERED: POTASSIUM CHLORIDE 10 MEQ TABLET.SA PO ONE (10:30)
--- NOTE | 2017-11-16 18:34 | PDOC PROGRESS REPORT ---
Subjective Progress Note for:: 11/16/17 Subjective:: Patient continues to diurese well. He is feeling pretty well today. He has been weak but his energy level is improving. He is eating and drinking without difficulty. No chest pain or shortness of breath. No bleeding fever or chills. Reason For Visit: HYPERKALEMIA,TACHYCARDIA,HEART FAILURE Physical Exam Vital Signs: Temp Pulse Resp BP Pulse Ox 97.5 F 63 16 100/74 97 11/16/17 15:52 11/16/17 15:52 11/16/17 15:52 11/16/17 15:52 11/16/17 15:52 Intake & Output 11/15/17 11/16/17 11/17/17 05:59 06:59 06:59 Intake Total Output Total Balance Weight General appearance: PRESENT: no acute distress Head exam: PRESENT: atraumatic Eye exam: PRESENT: conjunctiva pink Mouth exam: PRESENT: moist Respiratory exam: PRESENT: rales - Trace rales at the bilateral bases, unlabored. ABSENT: rhonchi, wheezes GI/Abdominal exam: PRESENT: normal bowel sounds, soft. ABSENT: distended, guarding, tenderness Extremities exam: PRESENT: +1 edema Neurological exam: PRESENT: alert, awake, oriented to person, oriented to place , oriented to situation, CN II-XII grossly intact Psychiatric exam: PRESENT: appropriate affect. ABSENT: anxious Skin exam: PRESENT: dry, warm Results Laboratory Results: 11/11/17 03:50 11/16/17 04:16 11/16/17 04:16 Sodium 134.7 L Potassium 3.3 L Chloride 90 L Carbon Dioxide 34 H Anion Gap 11 BUN 29 H Creatinine 0.90 Est GFR ( Amer) > 60 Est GFR (Non-Af Amer) > 60 Glucose 91 Calcium 9.2 Magnesium 1.7 11/10/17 11/11/17 11/11/17 21:55 03:50 03:50 Creatine Kinase 60 CK-MB (CK-2) 2.05 Troponin I 0.087 0.089 11/11/17 11/11/17 10:39 10:39 Creatine Kinase 56 CK-MB (CK-2) 2.05 Troponin I 0.095 Impressions: Chest X-Ray 11/10/17 15:53 IMPRESSION: Cardiac enlargement with mild pulmonary vascular prominence but no tita CHF. Abdomen Ultrasound 11/11/17 00:00 IMPRESSION: 1. Ascites. 2. Cholelithiasis. Assessment & Plan - Diagnosis (1) Congestive heart failure Qualifiers: Heart failure type: combined systolic and diastolic Heart failure chronicity: acute on chronic Qualified Code(s): I50.43 - Acute on chronic combined systolic (congestive) and diastolic (congestive) heart failure Is this a current diagnosis for this admission?: Yes Plan: She has systolic and diastolic failure. This is an acute exacerbation which is improving. Half of 20%. Patient is on his Coreg. Continue Lasix and metolazone. (2) Hyperbilirubinemia Is this a current diagnosis for this admission?: Yes Plan: due to hepatic congestion, bili trending downward, will check again tomorrow (3) Hypokalemia Is this a current diagnosis for this admission?: Yes Plan: potassium low again with diuresis. Will replete potassium and consider increasing his oral potassium for discharge. Potassium repeat pending this evening. (4) Hyponatremia Is this a current diagnosis for this admission?: Yes Plan: Improving steadily with treatment for CHF. Will continue to diurese. Will cont to monitor Na. (5) Hypotension Is this a current diagnosis for this admission?: Yes Plan: Stable and asymptomatic. He is on antihypertensives as indicated for his severe heart failure. Continue current medication regimen. (6) Tick bite Is this a current diagnosis for this admission?: Yes Plan: Continue 14 days of doxycycline. (7) Transaminitis Is this a current diagnosis for this admission?: Yes Plan: Due to hepatic congestion. ALT normal AST improving. Continue to monitor as we diurese. Hepatitis panel negative. Right upper quadrant ultrasound on 2017 showed ascites and cholelithiasis. - Time Time Spent with patient: 15-24 minutes Medications reviewed and adjusted accordingly: Yes - Inpatient Certification Based on my medical assessment, after consideration of the patient's comorbidities, presenting symptoms, or acuity I expect that the services needed warrant INPATIENT care.: Yes I certify that my determination is in accordance with my understanding of Medicare's requirements for reasonable and necessary INPATIENT services [42 CFR 412.3e].: Yes Medical Necessity: Need Close Monitoring Due to Risk of Patient Decompensation, Risk of Complication if Not Cared For in Hospital
[2017-11-17 04:26] LABS: HEMATOCRIT 45.9 % (37.9-51.0); HEMOGLOBIN 15.2 g/dL (13.5-17.0); MEAN CORPUSCULAR HEMOGLOBIN 30.1 pg (27.0-33.4); MEAN CORPUSCULAR HGB CONC 33.2 g/dL (32.0-36.0); MEAN CORPUSCULAR VOLUME 91 fl (80-97); PLATELET COUNT 197 10^3/uL (150-450); RED BLOOD COUNT 5.05 10^6/uL (4.35-5.55); RED CELL DISTRIBUTION WIDTH 16.7 % (11.5-14.0); WHITE BLOOD COUNT 5.6 10^3/uL (4.0-10.5)
[2017-11-17 05:00] LABS: ALANINE AMINOTRANSFERASE 87 U/L (21-72); ALBUMIN 3.2 g/dL (3.5-5.0); ALKALINE PHOSPHATASE 68 U/L (38-126); ANION GAP 9 (5-19); ASPARTATE AMINO TRANSFERASE 30 U/L (17-59); BILIRUBIN,DIRECT 0.8 mg/dL (0.0-0.4); BILIRUBIN,TOTAL 1.9 mg/dL (0.2-1.3); BLOOD UREA NITROGEN 26 mg/dL (7-20); CALCIUM 8.9 mg/dL (8.4-10.2); CARBON DIOXIDE 32 mmol/L (22-30); CHLORIDE 93 mmol/L (98-107); GLUCOSE 88 mg/dL (75-110); POTASSIUM 3.6 mmol/L (3.6-5.0); SODIUM 134.4 mmol/L (137-145); TOTAL PROTEIN 5.9 g/dL (6.3-8.2)
[2017-11-17] MEDS: CLOPIDOGREL BISULFATE 75 MG TABLET PO SCH (09:55)
[2017-11-17] MEDS: DOXYCYCLINE HYCLATE 100 MG TABLET PO SCH (09:55)
[2017-11-17] MEDS: ASPIRIN 81 MG TABLET, CHEWABLE PO SCH (09:55)
[2017-11-17] MEDS: FUROSEMIDE 40 MG TABLET PO SCH (09:55)
[2017-11-17] MEDS: DIGOXIN 0.25 MG TABLET PO SCH (09:55)
[2017-11-17] MEDS: MAGNESIUM OXIDE 400 MG TABLET PO SCH (09:55)
[2017-11-17] MEDS: CARVEDILOL 3.125 MG TABLET PO SCH (09:55)
[2017-11-17] MEDS: MIDODRINE HCL 5 MG TABLET PO SCH (09:56)
[2017-11-17] MEDS: METOLAZONE 5 MG TABLET PO SCH (09:56)
[2017-11-17] MEDS: POTASSIUM CHLORIDE 10 MEQ TABLET.SA PO SCH (09:56)
[2017-11-17 10:34] VITALS: BP 100/74
--- NOTE | 2017-11-17 23:31 | PDOC DISCHARGE SUMMARY ---
General - Admit/Disc Date/PCP Admission Date/Primary Care Provider: 11/10/17 17:20 NO LOCALRI Discharge Date: 11/17/17 - Discharge Diagnosis (1) Congestive heart failure Is this a current diagnosis for this admission?: Yes Summary: Patient has systolic heart failure. He sees Dr. Smith who saw him on the day of discharge here. He came in with an acute exacerbation of his CHF and he was diuresed actively, he is discharged on 40 mg p.o. twice daily and metolazone 5 mg daily. Is also being discharged on potassium 20 mg p.o. twice daily. He will see Dr. Smith in the office in the next few days. He is normally hypotensive and asymptomatic and his cardiac meds have been restarted including low-dose carvedilol, he is fairly noncompliant and so we have encouraged him to take his cardiac meds as prescribed. (2) Hyperbilirubinemia Is this a current diagnosis for this admission?: Yes Summary: Secondary to hepatic congestion. Improved with diuresis. (3) Hypokalemia Is this a current diagnosis for this admission?: Yes Summary: Secondary to aggressive diuresis. Potassium was monitored closely and repleted as indicated. He was discharged on oral potassium. (4) Hyponatremia Is this a current diagnosis for this admission?: Yes Summary: Secondary to CHF exacerbation. Sodium improved with diuresis. He is discharged with a safe sodium level. (5) Hypotension Is this a current diagnosis for this admission?: Yes Summary: Chronic stable asymptomatic, contributed to by his blood pressure medications which are indicated for congestive heart failure. He is discharged on Midodrine 10 mg p.o. every 8 hours. (6) Tick bite Is this a current diagnosis for this admission?: Yes Summary: For safety and treatment of possible tickborne illness patient placed on doxycycline 14 mg p.o. twice daily for 14 days, discharged with another week of doxycycline. (7) Transaminitis Is this a current diagnosis for this admission?: Yes Summary: Secondary to hepatic congestion related to congestive heart failure. Improved with diuresis. - Additional Information Resuscitation Status: Full Code Discharge Diet: Cardiac Discharge Activity: Balance Activity w/Rest Prescriptions: Carvedilol [Coreg 3.125 mg Tablet] 3.125 mg PO Q12 30 Days #60 tablet Doxycycline Hyclate [Vibramycin 100 mg Tablet] 100 mg PO Q12 7 Days #14 tablet Furosemide [Lasix 40 mg Tablet] 40 mg PO BID 30 Days #60 tablet Metolazone [Zaroxolyn 5 mg Tablet] 5 mg PO DAILY 30 Days #30 tablet Midodrine HCl [Proamatine 5 mg Tablet] 10 mg PO TID 30 Days #90 tablet Potassium Chloride [Klor-Con 10 Meq Tablet.sa] 20 meq PO BID 7 Days #14 tablet.sa Home Medications: Clopidogrel Bisulfate [Plavix 75 mg Tablet] 75 mg PO DAILY 11/10/17 Digoxin [Lanoxin] 250 mcg PO DAILY 11/10/17 Aspirin [Aspirin 81 mg Chewable Tablet] 81 mg PO DAILY tab.chew 11/17/17 Carvedilol [Coreg 3.125 mg Tablet] 3.125 mg PO Q12 30 Days #60 tablet 11/17/17 Doxycycline Hyclate [Vibramycin 100 mg Tablet] 100 mg PO Q12 7 Days #14 tablet 11/17/17 Furosemide [Lasix 40 mg Tablet] 40 mg PO BID 30 Days #60 tablet 11/17/17 Metolazone [Zaroxolyn 5 mg Tablet] 5 mg PO DAILY 30 Days #30 tablet 11/17/17 Midodrine HCl [Proamatine 5 mg Tablet] 10 mg PO TID 30 Days #90 tablet 11/17/17 Potassium Chloride [Klor-Con 10 Meq Tablet.sa] 20 meq PO BID 7 Days #14 tablet.sa 11/17/17 History of Present Illness Patient complains of: Edema and dyspnea History of Present Illness: KAPIL RUVALCABA is a 52 year old male KAPIL RUVALCABA is a 52 year old male with past medical history of congestive heart failure with an ejection fraction of 20% in 2014, status post pacemaker and multifactorial noncompliance secondary to diet lifestyle and medication noncompliance. Patient presents with several days of shortness of breath with exertion and generalized edema prompting follow-up with his primary software technical lead Dr. Smith where he is found with significant congestive heart failure exacerbation referred to the emergency department. He is found to have tachycardia, hypotension, +3 edema, hyponatremia, LFT elevation and a BNP of 12,000. He started on IV Lasix and referred to the hospitalist for admission. Patient admits to dietary and lifestyle indiscretion consuming fast food exclusively and greater than a half a gallon of water per day. Patient denies episodes chest pain. Hospital Course Hospital Course: Please see hospital course by problem list Physical Exam Vital Signs: Temp Pulse Resp BP Pulse Ox 98.2 F 72 18 100/74 92 11/17/17 10:32 11/17/17 10:32 11/17/17 10:32 11/17/17 10:32 11/17/17 10:32 Intake & Output 11/16/17 11/17/17 11/18/17 06:59 06:59 06:59 Intake Total 1923 Output Total Balance 1923 Weight 82.3 kg General appearance: PRESENT: no acute distress, cooperative Eye exam: PRESENT: conjunctiva pink, EOMI Respiratory exam: PRESENT: decreased breath sounds, unlabored. ABSENT: rales, wheezes Cardiovascular exam: PRESENT: RRR, systolic murmur GI/Abdominal exam: PRESENT: normal bowel sounds, soft. ABSENT: distended, tenderness Extremities exam: PRESENT: pedal edema Neurological exam: PRESENT: alert, awake, oriented to person, oriented to place , oriented to situation, CN II-XII grossly intact Psychiatric exam: PRESENT: appropriate affect. ABSENT: anxious Skin exam: PRESENT: dry, intact, warm Results Laboratory Results: 11/17/17 04:17 11/17/17 04:17 11/17/17 11/17/17 04:17 04:17 WBC 5.6 RBC 5.05 Hgb 15.2 Hct 45.9 MCV 91 MCH 30.1 MCHC 33.2 RDW 16.7 H Plt Count 197 Sodium 134.4 L Potassium 3.6 Chloride 93 L Carbon Dioxide 32 H Anion Gap 9 BUN 26 H Creatinine 0.84 Est GFR ( Amer) > 60 Est GFR (Non-Af Amer) > 60 Glucose 88 Calcium 8.9 Total Bilirubin 1.9 H AST 30 ALT 87 H Alkaline Phosphatase 68 Total Protein 5.9 L Albumin 3.2 L 11/10/17 11/11/17 11/11/17 21:55 03:50 03:50 Creatine Kinase 60 CK-MB (CK-2) 2.05 Troponin I 0.087 0.089 11/11/17 11/11/17 10:39 10:39 Creatine Kinase 56 CK-MB (CK-2) 2.05 Troponin I 0.095 Impressions: Chest X-Ray 11/10/17 15:53 IMPRESSION: Cardiac enlargement with mild pulmonary vascular prominence but no tita CHF. Abdomen Ultrasound 11/11/17 00:00 IMPRESSION: 1. Ascites. 2. Cholelithiasis. Qualifiers - * PATEINT BEING DISCHARGED WITH ANY OF THE FOLLOWING DIAGNOSIS?: Heart Failure HF Pt being discharged on ACEI for LVEF less than 40%?: No Reason(s) for not prescribing ACEI:: Medical Contraindication HF Pt being discharged on [facility]BS for LVEF less than 40%?: No Reason(s) for not prescribing ARBS:: Medical Contraindication HF Pt with Afib discharged with Warfarin?: No Reason(s) for not prescribing Warfarin:: Not indicated - Patient does not have A. fib b HF Pt discharged on evidence-based Beta Rojas:: Yes
== END 2017-11-17 12:30 | disposition home or self-care (01) | DRG 292 ==
LOC: ER 14:09 → EH 17:20 → 5 11-11 12:16
PROVIDERS: ADMIT Internal Medicine; ATTEND Internal Medicine
PROC: 5A09357 Assistance with Respiratory Ventilation, Less than 24 Consecutive Hours, Continuous Positive Airway Pressure (ICD-10-PCS; principal; 2017-11-10)
DX: I11.0 Hypertensive heart disease with heart failure (principal); E87.1 Hypo-osmolality and hyponatremia; I50.23 Acute on chronic systolic (congestive) heart failure; I95.9 Hypotension, unspecified; I25.10 Atherosclerotic heart disease of native coronary artery without angina pectoris; I25.2 Old myocardial infarction; Z91.19 Patient's noncompliance with other medical treatment and regimen; J44.9 Chronic obstructive pulmonary disease, unspecified; T14.8XXA Other injury of unspecified body region, initial encounter; W57.XXXA Bitten or stung by nonvenomous insect and other nonvenomous arthropods, initial encounter; E87.6 Hypokalemia; I50.810 Right heart failure, unspecified; E80.6 Other disorders of bilirubin metabolism; R74.0 Nonspecific elevation of levels of transaminase and lactic acid dehydrogenase [LDH]; E78.5 Hyperlipidemia, unspecified; T50.1X5A Adverse effect of loop [high-ceiling] diuretics, initial encounter; K76.89 Other specified diseases of liver; Z82.49 Family history of ischemic heart disease and other diseases of the circulatory system; Z95.5 Presence of coronary angioplasty implant and graft; Z95.810 Presence of automatic (implantable) cardiac defibrillator; Z87.891 Personal history of nicotine dependence; Z88.6 Allergy status to analgesic agent; Z79.82 Long term (current) use of aspirin; Z79.899 Other long term (current) drug therapy; Z86.14 Personal history of Methicillin resistant Staphylococcus aureus infection
CPT/HCPCS: 36415; 71046; 76705; 80048; 80053; 80074; 80076; 82550; 82553; 83036; 83735; 83880; 84132; 84443; 84484; 85025; 85027; 93005; 93010; 99285; J1644; J1940; J3475; J3490

== ENCOUNTER 2017-12-01 08:48 | Observation (INO) | payer MEDICARE ==
[2017-12-01] MEDS ORDERED: ASPIRIN 81 MG TABLET, CHEWABLE PO ONE (09:48)
--- NOTE | 2017-12-01 09:52 | ER Document Report ---
ED Cardiac - General Chief Complaint: Chest Pain Stated Complaint: CHEST PAIN Time Seen by Provider: 12/01/17 09:21 Mode of Arrival: Ambulatory Information source: Patient Notes: HPI-52 years old male with a history of coronary artery disease hypertension pacemaker/defibrillator, early this morning around 745 the defibrillator went off since then having general fatigue weakness and tiredness. Had chest tightness but no chest pain. Denies any left arm numbness tingling sensation nausea vomiting palpitation or diaphoresis. Prior to defibrillator charge, he did not feel any palpitation. REVIEW OF SYSTEMS: CONSTITUTIONAL : Denies fever, chills, or sweats. Denies recent illness. EENT: Denies eye, ear, throat, or mouth pain or symptoms. Denies nasal or sinus congestion or discharge. Denies throat, tongue, or mouth swelling or difficulty swallowing. CARDIOVASCULAR: Denies chest pain. Denies palpitations or racing or irregular heart beat. Denies ankle edema. RESPIRATORY: Denies cough, cold, or chest congestion. Denies shortness of breath, difficulty breathing, or wheezing. GASTROINTESTINAL: Denies abdominal pain or distention. Denies nausea, vomiting , or diarrhea. Denies blood in vomitus, stools, or per rectum. Denies black, tarry stools. Denies constipation. GENITOURINARY: Denies difficulty urinating, painful urination, burning, frequency, blood in urine, or discharge. MUSCULOSKELETAL: Denies back or neck pain or stiffness. Denies joint pain or swelling. SKIN: Denies rash, lesions or sores. HEMATOLOGIC : Denies easy bruising or bleeding. LYMPHATIC: Denies swollen, enlarged glands. NEUROLOGICAL: Denies confusion or altered mental status. Denies passing out or loss of consciousness. Denies dizziness or lightheadedness. Denies headache. Denies weakness or paralysis or loss of use of either side. Denies problems with gait or speech. Denies sensory loss, numbness, or tingling. Denies seizures. PSYCHIATRIC: Denies anxiety or stress. Denies depression, suicidal ideation, or homicidal ideation. ALL OTHER SYSTEMS REVIEWED AND NEGATIVE. Dictation was performed using [employer] voice recognition software PHYSICAL EXAMINATION: GENERAL: Well-appearing, well-nourished and in no acute distress. HEAD: Atraumatic, normocephalic. EYES: Pupils equal round and reactive to light, extraocular movements intact, sclera anicteric, conjunctiva are normal. ENT: Nares patent, oropharynx clear without exudates. Moist mucous membranes. NECK: Normal range of motion, supple without lymphadenopathy LUNGS: Breath sounds clear to auscultation bilaterally and equal. No wheezes rales or rhonchi. HEART: Regular rate and rhythm without murmurs ABDOMEN: Soft, nontender, nondistended abdomen. No guarding, no rebound. No masses appreciated. Musculoskeletal: Normal range of motion, no pitting or edema. No cyanosis. NEUROLOGICAL: Cranial nerves grossly intact. Normal speech, normal gait. Normal sensory, motor exams PSYCH: Normal mood, normal affect. SKIN: Warm, Dry, normal turgor, no rashes or lesions noted. TRAVEL OUTSIDE OF THE [place] IN LAST 30 DAYS: No - Related Data Allergies/Adverse Reactions: cinnamon Allergy (Verified 12/01/17 13:36) morphine [Morphine] Adverse Reaction (Severe, Verified 12/01/17 13:36) itching heparin Adverse Reaction (Verified 12/01/17 13:53) Past Medical History - Social History Smoking Status: Never Smoker Family History: Reviewed & Not Pertinent, CAD - Past Medical History Cardiac Medical History: Reports: Hx Congestive Heart Failure, Hx Coronary Artery Disease, Hx Heart Attack, Hx Hypertension Pulmonary Medical History: Reports: Hx COPD Renal/ Medical History: Denies: Hx Peritoneal Dialysis Skin Medical History: Comment Only Hx MRSA - MRSA 04/15 [facility] Psychiatric Medical History: Denies: Hx Depression Past Surgical History: Reports: Hx Cardiac Catheterization - with stent, Hx Internal Defibrillator, Hx PacemakerComment Only: Hx Cardiac Surgery - defib placement - Immunizations Hx Diphtheria, Pertussis, Tetanus Vaccination: No Physical Exam - Vital signs Vitals: Pulse Ox 98 12/01/17 09:00 Course - Vital Signs Vital signs: Temp Pulse Resp BP Pulse Ox 99.7 F 88 17 118/70 92 12/01/17 23:27 12/02/17 02:00 12/01/17 23:27 12/02/17 05:00 12/01/17 23:27 - Laboratory Result Diagrams: 12/02/17 04:13 12/02/17 04:13 Laboratory results interpreted by me: 12/01/17 12/01/17 12/01/17 09:20 10:15 10:15 RDW 16.3 H Sodium 134.9 L Potassium 3.2 L Chloride 95 L Carbon Dioxide 31 H Total Bilirubin 2.5 H Direct Bilirubin 0.9 H Creatine Kinase 48 L NT-Pro-B Natriuret Pep 80288 H - Diagnostic Test Radiology reviewed: Reports reviewed - Chest x-ray is unremarkable Critical Care Note - Critical Care Note Total time excluding time spent on procedures (mins): 60 Comments: Tracing of the pacemaker rhythm, it indicates that he was shocked at 745, he had a heart rate of 244, 20 J were delivered. This case was discussed with the hospitalist and currently being admitted Discharge - Discharge Clinical Impression: Ventricular fibrillation, Elevated troponin Condition: Fair Disposition: ADMITTED INPATIENT Admitting Provider: Hospitalist Unit Admitted: Telemetry
[2017-12-01 10:14] LABS: ABSOLUTE EOSINOPHILS # (AUTO) 0.2 10^3/uL (0.0-0.6); ABSOLUTE LYMPHOCYTES (AUTO) 0.7 10^3/uL (0.5-4.7); ABSOLUTE MONOCYTES (AUTO) 0.4 10^3/uL (0.1-1.4); ABSOLUTE NEUT (AUTO) 3.5 10^3/uL (1.7-8.2); EOSINOPHILS % (AUTO) 3.3 % (0-6); HEMATOCRIT 44.9 % (37.9-51.0); HEMOGLOBIN 15.1 g/dL (13.5-17.0); LYMPHOCYTES % (AUTO) 13.9 % (13-45); MEAN CORPUSCULAR HEMOGLOBIN 29.7 pg (27.0-33.4); MEAN CORPUSCULAR HGB CONC 33.6 g/dL (32.0-36.0); MEAN CORPUSCULAR VOLUME 89 fl (80-97); MONOCYTES % (AUTO) 8.9 % (3-13); PLATELET COUNT 164 10^3/uL (150-450); RED BLOOD COUNT 5.07 10^6/uL (4.35-5.55); RED CELL DISTRIBUTION WIDTH 16.3 % (11.5-14.0); SEGMENTED NEUTROPHILS % (AUTO) 72.9 % (42-78); TOTAL CELLS COUNTED % (AUTO) 100 %; WHITE BLOOD COUNT 4.8 10^3/uL (4.0-10.5)
--- NOTE | 2017-12-01 10:14 | RADIOLOGY REPORT (SQ) ---
EXAM DESCRIPTION: CHEST SINGLE VIEW COMPLETED DATE/TIME: 12/01/2017 10:02 am REASON FOR STUDY: Chest pain COMPARISON: 11/10/2017 EXAM PARAMETERS: NUMBER OF VIEWS: One view. TECHNIQUE: Single frontal radiographic view of the chest acquired. RADIATION DOSE: NA LIMITATIONS: None. FINDINGS: LUNGS AND PLEURA: No opacities, masses or pneumothorax. No pleural effusion. MEDIASTINUM AND HILAR STRUCTURES: No masses. Contour normal. HEART AND VASCULAR STRUCTURES: Moderate cardiomegaly. BONES: No acute findings. HARDWARE: Left subclavian defibrillator. OTHER: No other significant finding. IMPRESSION: Cardiomegaly without evidence of acute cardiopulmonary disease. TECHNICAL DOCUMENTATION: JOB ID: [id number] [employer]- All Rights Reserved Reading location - IP/workstation name: [email or web address]
[2017-12-01 10:48] LABS: ALANINE AMINOTRANSFERASE 39 U/L (21-72); ALBUMIN 3.6 g/dL (3.5-5.0); ALKALINE PHOSPHATASE 72 U/L (38-126); ANION GAP 9 (5-19); ASPARTATE AMINO TRANSFERASE 24 U/L (17-59); BILIRUBIN,DIRECT 0.9 mg/dL (0.0-0.4); BILIRUBIN,TOTAL 2.5 mg/dL (0.2-1.3); BLOOD UREA NITROGEN 14 mg/dL (7-20); CALCIUM 9.2 mg/dL (8.4-10.2); CARBON DIOXIDE 31 mmol/L (22-30); CHLORIDE 95 mmol/L (98-107); CREATINE KINASE 48 U/L (55-170); GLUCOSE 101 mg/dL (75-110); POTASSIUM 3.2 mmol/L (3.6-5.0); SODIUM 134.9 mmol/L (137-145); TOTAL PROTEIN 6.6 g/dL (6.3-8.2)
[2017-12-01 11:04] LABS: CREATINE KINASE MB 1.25 ng/mL (<4.55)
[2017-12-01 11:10] LABS: TROPONIN I 0.397 ng/mL
[2017-12-01] MEDS ORDERED: ZOLPIDEM TARTRATE 5 MG TABLET PO PRN (12:02)
[2017-12-01] MEDS ORDERED: OXYCODONE-ACETAMINOPHEN 5-325 MG TABLET PO PRN (12:02)
[2017-12-01] MEDS ORDERED: ACETAMINOPHEN 325 MG TABLET PO PRN (12:02)
[2017-12-01] MEDS: POTASSIUM CHLORIDE 10 MEQ TABLET.SA PO SCH ×3 (13:39→21:21)
[2017-12-01] MEDS: MAGNESIUM SULFATE/D5W 1 GM/100 ML RTUPB IV SCH ×2 (13:41→15:08)
[2017-12-01] MEDS ORDERED: HEPARIN SOD (PORCINE) 5,000 UNIT/ML 1 ML SYRINGE SUBCUT SCH (14:00)
--- NOTE | 2017-12-01 14:23 | EKG REPORT ---
SEVERITY:- ABNORMAL ECG - SINUS TACHYCARDIA RUN OF VENTRICULAR PREMATURE COMPLEXES FIRST DEGREE AV BLOCK LEFT ATRIAL ABNORMALITY NONSPECIFIC IVCD WITH LAD LVH WITH SECONDARY REPOLARIZATION ABNORMALITY LATERAL INFARCT, AGE INDETERMINATE : Confirmed by: Arthur Romano MD 01-Dec-2017 14:23:28
--- NOTE | 2017-12-01 15:50 | RADIOLOGY REPORT (SQ) ---
EXAM DESCRIPTION: CT ABD/PELVIS WITH IV ONLY COMPLETED DATE/TIME: 12/01/2017 3:27 pm REASON FOR STUDY: right CV tenderness R10.10 UPPER ABDOMINAL PAIN, UNSPECIFIED COMPARISON: None. TECHNIQUE: CT scan of the abdomen and pelvis performed using helical scanning technique with dynamic intravenous contrast injection. No oral contrast. Images reviewed with lung, soft tissue, and bone windows. Reconstructed coronal and sagittal MPR images reviewed. Delayed images for evaluation of the urinary system also acquired. All images stored on PACS. All CT scanners at this facility use dose modulation, iterative reconstruction, and/or weight based d osing when appropriate to reduce radiation dose to as low as reasonably achievable (ALARA). [facility]: Dose Right [facility]: CareDose [facility]: Dose Right [facility]: Teradose 4D [facility]: 99.co CONTRAST TYPE AND DOSE: contrast/concentration: Isovue 370.00 mg/ml; Total Contrast Delivered: 89.0 ml; Total Saline Delivered: 70.0 ml RENAL FUNCTION: BUN 14 creatinine 0.8 RADIATION DOSE: CT Rad equipment meets quality standard of care and radiation dose reduction techniq ues were employed. CTDIvol: 6.7 - 9.5 mGy. DLP: 900 mGy-cm.. LIMITATIONS: None. FINDINGS: LOWER CHEST: Cardiomegaly. LIVER: Normal size. No masses. No dilated ducts. SPLEEN: Old granulomatous disease. PANCREAS: No masses. No significant calcifications. No adjacent inflammation or peripancreatic fluid collections. Pancreatic duct not dilated. GALLBLADDER: Mild distension. No stones or inflammatory change. ADRENAL GLANDS: No significant masses or asymmetry. RIGHT KIDNEY AND URETER: No solid masses. No significant calcifications. No hydronephrosis or hyd roureter. LEFT KIDNEY AND URETER: No solid masses. No significant calcifications. No hydronephrosis or hydr oureter. AORTA AND VESSELS: No aneurysm. No dissection. Renal arteries, SMA, celiac without stenosis. RETROPERITONEUM: No retroperitoneal adenopathy, hemorrhage or masses. BOWEL AND PERITONEAL CAVITY: No masses or inflammatory changes. No free fluid or peritoneal masses. APPENDIX: Normal. PELVIS: No mass. No free fluid. Normal bladder. ABDOMINAL WALL: Anterior abdominal wall hernia containing fat. BONES: No acute findings. OTHER: No other significant finding. IMPRESSION: Distended gallbladder, probably physiologic. No biliary dilatation. TECHNICAL DOCUMENTATION: JOB ID: [id number] Quality ID # [id number]: Final reports with documentation of one or more dose reduction techniques (e.g., Au tomated exposure control, adjustment of the mA and/or kV according to patient size, use of iterative reconstruction technique) 2010 [employer]- All Rights Reserved Reading location - IP/workstation name: [email or web address]
[2017-12-01] MEDS ORDERED: MAGNESIUM OXIDE 400 MG TABLET PO ONE ×2 (16:00→20:00)
--- NOTE | 2017-12-01 17:14 | PDOC H&P ---
History of Present Illness Admission Date/PCP: December 01, 2009 No PCP Patient complains of: Defibrillator shocked him this morning History of Present Illness: KAPIL RUVALCABA is a 52 year old male presents ambulatory complaining of his defibrillator firing this morning. Patient denies any chest pain, shortness of breath, nausea vomiting, weakness. He states that he was recently discharged from this facility due to heart failure. The patient denies smoking. He also denies having a primary care provider. During the course of evaluation in emergency room troponin was a slightly elevated. Dr. Smith who has been following up this patient and was contacted. I was told that he recommended for ED physician to use his discretion as far as the need for a recommendation for patient to be admitted. Our service was consulted for that purpose. Past Medical History Cardiac Medical History: Reports: Congestive Heart Failure, Coronary Artery Disease, Myocardial Infarction, Hypertension Pulmonary Medical History: Reports: Chronic Obstructive Pulmonary Disease (COPD) EENT Medical History: Reports: None Neurological Medical History: Reports: None Endocrine Medical History: Reports: None Renal/ Medical History: Reports: None Malignancy Medical History: Reports: None GI Medical History: Reports: None Musculoskeltal Medical History: Reports: None Skin Medical History: Reports: None Psychiatric Medical History: Reports: None Traumatic Medical History: Reports: None Hematology: Reports: None Infectious Medical History: Reports: None Past Surgical History Past Surgical History: Reports: Cardiac Catheterization - with stent, Internal Defibrillator, Pacemaker Social History Smoking Status: Former Smoker Frequency of Alcohol Use: Occasional Hx Recreational Drug Use: No Drugs: None Hx Prescription Drug Abuse: No - Advance Directive Resuscitation Status: Full Code Family History Family History: CAD Parental Family History Reviewed: Yes Children Family History Reviewed: Yes Sibling(s) Family History Reviewed.: Yes Medication/Allergy Home Medications: Clopidogrel Bisulfate [Plavix 75 mg Tablet] 75 mg PO DAILY 11/10/17 Digoxin [Lanoxin] 250 mcg PO DAILY 11/10/17 Aspirin [Aspirin 81 mg Chewable Tablet] 81 mg PO DAILY tab.chew 11/17/17 Carvedilol [Coreg 3.125 mg Tablet] 3.125 mg PO Q12 30 Days #60 tablet 11/17/17 Furosemide [Lasix 40 mg Tablet] 40 mg PO BID 30 Days #60 tablet 11/17/17 Metolazone [Zaroxolyn 5 mg Tablet] 5 mg PO DAILY 30 Days #30 tablet 11/17/17 Midodrine HCl [Proamatine 5 mg Tablet] 10 mg PO TID 30 Days #90 tablet 11/17/17 Allergies/Adverse Reactions: cinnamon Allergy (Verified 12/01/17 13:36) morphine [Morphine] Adverse Reaction (Severe, Verified 12/01/17 13:36) itching heparin Adverse Reaction (Verified 12/01/17 13:53) Review of Systems Constitutional: ABSENT: fatigue, weakness Eyes: ABSENT: visual disturbances Ears: ABSENT: hearing changes Nose, Mouth, and Throat: ABSENT: mouth pain, sore throat Respiratory: ABSENT: cough, dyspnea Gastrointestinal: PRESENT: abdominal pain. ABSENT: nausea, vomiting Neurological: ABSENT: dizziness, weakness Endocrine: ABSENT: polyphagia, polyuria Physical Exam Vital Signs: Temp Pulse Resp BP Pulse Ox 97.9 F 98 13 104/84 95 12/01/17 09:12 12/01/17 09:12 12/01/17 11:01 12/01/17 11:01 12/01/17 11:01 Intake & Output 11/30/17 12/01/17 12/02/17 06:59 06:59 06:59 Weight 75.8 kg General appearance: PRESENT: no acute distress, cooperative, well-developed, well-nourished Head exam: PRESENT: atraumatic, normocephalic Eye exam: PRESENT: conjunctiva pink, EOMI, PERRLA Ear exam: PRESENT: normal external ear exam Mouth exam: PRESENT: moist Neck exam: PRESENT: full ROM. ABSENT: JVD, lymphadenopathy, tenderness Respiratory exam: PRESENT: clear to auscultation marek Cardiovascular exam: PRESENT: RRR. ABSENT: diastolic murmur, systolic murmur Vascular exam: PRESENT: normal capillary refill GI/Abdominal exam: PRESENT: normal bowel sounds, tenderness. ABSENT: soft Extremities exam: PRESENT: full ROM. ABSENT: pedal edema Musculoskeletal exam: PRESENT: ambulatory Neurological exam: PRESENT: alert, awake, oriented to person, oriented to place , oriented to time, oriented to situation, CN II-XII grossly intact Psychiatric exam: PRESENT: appropriate affect, normal mood Skin exam: PRESENT: intact, normal color Results Laboratory Results: 12/01/17 09:20 12/01/17 10:15 12/01/17 12/01/17 12/01/17 09:20 09:20 10:15 WBC 4.8 RBC 5.07 Hgb 15.1 Hct 44.9 MCV 89 MCH 29.7 MCHC 33.6 RDW 16.3 H Plt Count 164 Seg Neutrophils % 72.9 Lymphocytes % 13.9 Monocytes % 8.9 Eosinophils % 3.3 Basophils % 1.0 Absolute Neutrophils 3.5 Absolute Lymphocytes 0.7 Absolute Monocytes 0.4 Absolute Eosinophils 0.2 Absolute Basophils 0.0 Sodium Cancelled 134.9 L Potassium Cancelled 3.2 L Chloride Cancelled 95 L Carbon Dioxide Cancelled 31 H Anion Gap Cancelled 9 BUN Cancelled 14 Creatinine Cancelled 0.81 Est GFR ( Amer) Cancelled > 60 Est GFR (Non-Af Amer) Cancelled > 60 Glucose Cancelled 101 Calcium Cancelled 9.2 Total Bilirubin Cancelled 2.5 H AST Cancelled 24 ALT Cancelled 39 Alkaline Phosphatase Cancelled 72 Total Protein Cancelled 6.6 Albumin Cancelled 3.6 12/01/17 12/01/17 12/01/17 09:20 09:20 10:15 Creatine Kinase Cancelled 48 L CK-MB (CK-2) Cancelled Troponin I Cancelled 12/01/17 10:15 Creatine Kinase CK-MB (CK-2) 1.25 Troponin I 0.397 Impressions: Chest X-Ray 12/01/17 09:49 IMPRESSION: Cardiomegaly without evidence of acute cardiopulmonary disease. Assessment & Plan - Diagnosis (1) Defibrillator discharge Is this a current diagnosis for this admission?: Yes Plan: Will replace electrolyte abnormalities such as potassium. To place and time in telemetry and observe (2) Cardiac defibrillator in place Is this a current diagnosis for this admission?: Yes Plan: Patient educated about firing of defibrillator reason have a defibrillator (3) Elevated troponin Is this a current diagnosis for this admission?: Yes Plan: Likely due to firing of defibrillator. Patient will be observed. To consult Dr. Smith (4) Hypokalemia Is this a current diagnosis for this admission?: Yes Plan: Will replace p.o. and trend. Will order mag sulfate 1 g IV empirically (5) Abdominal pain Qualifiers: Abdominal location: right upper quadrant Qualified Code(s): R10.11 - Right upper quadrant pain Is this a current diagnosis for this admission?: Yes Plan: There is a most recent hospitalization he was evaluated throughout abdominal sonogram showed cholelithiasis.Will order a CT of the abdomen and pelvis since pain is not exactly in the right upper quadrant. It is not worth it to mention that patient had lost significant amount of weight recently (6) Ischemic dilated cardiomyopathy Is this a current diagnosis for this admission?: Yes Plan: Continue with outpatient regimen (7) Chronic CHF Qualifiers: Heart failure type: combined systolic and diastolic Qualified Code(s): I50.42 - Chronic combined systolic (congestive) and diastolic (congestive) heart failure Is this a current diagnosis for this admission?: Yes Plan: BNP is actually lower than on his recent hospitalization. This appears to be a chronic condition. Will continue with outpatient regimen. - Time Time Spent: 30 to 50 Minutes Medications reviewed and adjusted accordingly: Yes Anticipated discharge: Home Within: within 24 hours - Inpatient Certification Based on my medical assessment, after consideration of the patient's comorbidities, presenting symptoms, or acuity I expect that the services needed warrant INPATIENT care.: No I certify that my determination is in accordance with my understanding of Medicare's requirements for reasonable and necessary INPATIENT services [42 CFR 412.3e].: Yes Medical Necessity: Need Close Monitoring Due to Risk of Patient Decompensation, Need For Continuous Telemetry Monitoring
[2017-12-01] MEDS: MIDODRINE HCL 5 MG TABLET PO SCH (19:38)
[2017-12-01] MEDS: LANSOPRAZOLE 30 MG TAB.RAP.DR PO SCH (19:40)
[2017-12-01] MEDS: FUROSEMIDE INJ/PF 20 MG/2 ML SDV IV SCH (19:40)
[2017-12-01] MEDS: CARVEDILOL 3.125 MG TABLET PO SCH (21:21)
[2017-12-01] MEDS ORDERED: POLYETHYLENE GLYCOL 3350 POWDER 17 GM/1 PACKET PO PRN (21:31)
[2017-12-02 04:48] LABS: ABSOLUTE BASOPHILS # (AUTO) 0.1 10^3/uL (0.0-0.2); ABSOLUTE EOSINOPHILS # (AUTO) 0.1 10^3/uL (0.0-0.6); ABSOLUTE MONOCYTES (AUTO) 0.4 10^3/uL (0.1-1.4); ABSOLUTE NEUT (AUTO) 2.9 10^3/uL (1.7-8.2); BASOPHILS % (AUTO) 1.3 % (0-2); EOSINOPHILS % (AUTO) 2.3 % (0-6); HEMATOCRIT 43.1 % (37.9-51.0); HEMOGLOBIN 14.5 g/dL (13.5-17.0); LYMPHOCYTES % (AUTO) 21.6 % (13-45); MEAN CORPUSCULAR HEMOGLOBIN 29.8 pg (27.0-33.4); MEAN CORPUSCULAR HGB CONC 33.7 g/dL (32.0-36.0); MEAN CORPUSCULAR VOLUME 88 fl (80-97); MONOCYTES % (AUTO) 9.6 % (3-13); PLATELET COUNT 155 10^3/uL (150-450); RED BLOOD COUNT 4.88 10^6/uL (4.35-5.55); RED CELL DISTRIBUTION WIDTH 16.4 % (11.5-14.0); SEGMENTED NEUTROPHILS % (AUTO) 65.2 % (42-78); TOTAL CELLS COUNTED % (AUTO) 100 %; WHITE BLOOD COUNT 4.4 10^3/uL (4.0-10.5)
[2017-12-02 05:03] LABS: ANION GAP 10 (5-19); BLOOD UREA NITROGEN 13 mg/dL (7-20); CALCIUM 9.1 mg/dL (8.4-10.2); CARBON DIOXIDE 29 mmol/L (22-30); CHLORIDE 97 mmol/L (98-107); GLUCOSE 93 mg/dL (75-110); SODIUM 135.7 mmol/L (137-145)
[2017-12-02] MEDS: LANSOPRAZOLE 30 MG TAB.RAP.DR PO SCH ×2 (05:17→17:38)
[2017-12-02] MEDS: FUROSEMIDE INJ/PF 20 MG/2 ML SDV IV SCH ×2 (05:17→17:39)
[2017-12-02 05:38] LABS: POTASSIUM 4.4 mmol/L (3.6-5.0)
[2017-12-02] MEDS: MIDODRINE HCL 5 MG TABLET PO SCH ×3 (09:38→17:37)
[2017-12-02] MEDS: DOCUSATE SODIUM 100 MG CAPSULE PO SCH (09:39)
[2017-12-02] MEDS: CLOPIDOGREL BISULFATE 75 MG TABLET PO SCH (09:39)
[2017-12-02] MEDS: CARVEDILOL 3.125 MG TABLET PO SCH (09:39)
[2017-12-02] MEDS: MAGNESIUM OXIDE 400 MG TABLET PO SCH ×2 (09:39→17:38)
[2017-12-02] MEDS: DIGOXIN 0.25 MG TABLET PO SCH (09:39)
--- NOTE | 2017-12-02 10:34 | PDOC CONSULTATION ---
Consultation Consult Date: 12/01/17 Attending physician:: AGA ESTES Consult reason:: Defibrillator shock History of Present Illness Admission Date/PCP: 12/01/17 12:33 Patient complains of: Defibrillator shock History of Present Illness: KAPIL RUVALCABA is a 52 year old male presents ambulatory complaining of his defibrillator firing this morning. Patient denies any chest pain, shortness of breath, nausea vomiting, weakness. He states that he was recently discharged from this facility due to heart failure. The patient denies smoking. He also denies having a primary care provider. During the course of evaluation in emergency room troponin was a slightly elevated. Dr. Smith who has been following up this patient and was contacted. I was told that he recommended for ED physician to use his discretion as far as the need for a recommendation for patient to be admitted. Our service was consulted for that purpose. Patient was recently at [facility] and had a heart catheterization. He also had coronary stent placement. Patient claims his last stress test was about 2 years ago. Patient's troponin I has come back elevated but patient denies any chest pain. Patient was also recently hospitalized with progressive pedal edema and shortness of breath and had significant diuresis. Currently he is free of edema. Past Medical History Cardiac Medical History: Reports: Congestive Heart Failure, Coronary Artery Disease, Myocardial Infarction Denies: Hypertension Pulmonary Medical History: Reports: Chronic Obstructive Pulmonary Disease (COPD) Denies: Asthma, Bronchitis, Pneumonia, Tuberculosis EENT Medical History: Reports: None Neurological Medical History: Reports: None Denies: Seizures Endocrine Medical History: Reports: None Renal/ Medical History: Reports: None Denies: End Stage Renal Disease Malignancy Medical History: Reports: None GI Medical History: Reports: None Denies: Cirrhosis, Gastroesophageal Reflux Disease Musculoskeltal Medical History: Reports: None Denies: Arthritis Skin Medical History: Reports: None Psychiatric Medical History: Reports: None Denies: Bipolar Disorder, Depression Traumatic Medical History: Reports: None Hematology: Reports: None Denies: Anemia, Bleeding Tendencies Infectious Medical History: Reports: None Past Surgical History Past Surgical History: Reports: Cardiac Catheterization - with stent, Internal Defibrillator, Pacemaker Social History Information Source: Patient Smoking Status: Former Smoker Frequency of Alcohol Use: Occasional Hx Recreational Drug Use: No Drugs: None Hx Prescription Drug Abuse: No - Advance Directive Resuscitation Status: Full Code Family History Family History: CAD Parental Family History Reviewed: Yes Children Family History Reviewed: Yes Sibling(s) Family History Reviewed.: Yes Medication/Allergy Home Medications: Clopidogrel Bisulfate [Plavix 75 mg Tablet] 75 mg PO DAILY 11/10/17 Digoxin [Lanoxin] 250 mcg PO DAILY 11/10/17 Aspirin [Aspirin 81 mg Chewable Tablet] 81 mg PO DAILY tab.chew 11/17/17 Carvedilol [Coreg 3.125 mg Tablet] 3.125 mg PO Q12 30 Days #60 tablet 11/17/17 Furosemide [Lasix 40 mg Tablet] 40 mg PO BID 30 Days #60 tablet 11/17/17 Metolazone [Zaroxolyn 5 mg Tablet] 5 mg PO DAILY 30 Days #30 tablet 11/17/17 Midodrine HCl [Proamatine 5 mg Tablet] 10 mg PO TID 30 Days #90 tablet 11/17/17 Allergies/Adverse Reactions: cinnamon Allergy (Verified 12/01/17 13:36) morphine [Morphine] Adverse Reaction (Severe, Verified 12/01/17 13:36) itching heparin Adverse Reaction (Verified 12/01/17 13:53) Review of Systems Review of Systems: Please see history of present illness and past medical history as wall. Constitutional: No fever or chills reported. Head : No recent chronic headaches, recent head injury. Eyes: No recent eye pain, diplopia, redness, discharge, acute visual changes. Ears: No recent chronic ear pain, acute hearing loss, ear discharge. Oral cavity: No recent ulcerations, bleeding, oral cavity discomfort. Neck: No recent acute neck pain reported. Hematologic: No recent easy bruising or bleeding or hematologic malignancy reported. Lymphatic: No recent lymphatic malignancy, chronic lymphadenopathy reported yet Cardiovascular system review: See history of present illness. Respiratory system review: No recent chronic cough, hemoptysis, blood clots in the lungs reported. Mild Shortness of breath on exertion Gastrointestinal system review: Negative for any recent acute or chronic abdominal pain, hematemesis, melena, recent change in bowel habits. Genitourinary system review: No recent acute or chronic hematuria, flank pain, UTI etc. reported. Skin system review: Negative for any recent abnormal bruising, no rash, no pruritus reported. Neurologic: No prior history of strokes, mini strokes, seizure disorder. Psychologic: No history of major psychosis or major depression reported. Musculoskeletal: Minor aches and pains reported. No acute joint swelling reported. Endocrine: No recent polyuria, polydipsia, recent heat or cold intolerance. Physical Exam Vital Signs: Temp Pulse Resp BP Pulse Ox 97.9 F 85 16 100/79 93 12/01/17 09:12 12/01/17 18:12 12/01/17 15:01 12/01/17 15:01 12/01/17 15:01 Exam: GENERAL: well-nourished and in no acute distress. Alert and oriented x3 HEAD: Atraumatic, normocephalic. EYES: Pupils equal round and reactive to light, extraocular movements intact, sclera anicteric, conjunctiva are normal. ENT: TMs normal, nares patent, oropharynx clear without exudates. Moist mucous membranes. No oral ulcerations or bleeding gums noted NECK: supple without lymphadenopathy. Trachea is central. No cervical or axillary lymphadenopathy noted. Carotids are 2+, JVD WNL LUNGS: Respiration seems nonlabored, no significant accessory muscle action noted. Breath sounds clear to auscultation bilaterally and equal noted. No wheezes rales or rhonchi noted. No significant dullness noted on percussion. CHEST: Palpation of the chest wall shows no significant chest wall tenderness. No other significant abnormalities noted. HEART: [place] [employer], No PSH, 1/6 JACQUELINE aortic area, 1/6 montero systolic murmur mitral area, no rubs, no gallops. ABDOMEN: Soft, no significant tenderness appreciated, normoactive bowel sounds. No guarding, no rebound. No rigidity noted . No masses appreciated. EXTREMITIES: Pedal pulses are 1-2+, no calf tenderness noted. No clubbing or cyanosis.trace pedal edema noted NEUROLOGICAL: Focused neurological exam showed no significant neurologic deficit. Normal speech, no focal weakness appreciated. PSYCH: Normal mood, normal affect. Judgment and insight within normal limits. SKIN: No significant ecchymosis, skin is noted to be warm. MUSCULOSKELETAL EXAM: No significant acute joint swelling noted. Results Laboratory Results: 12/01/17 12/01/17 13:30 13:30 Creatine Kinase 44 L Troponin I 0.439 EKG Comments: Sinus rhythm, left bundle branch block pattern, VPCs and APCs noted. Impressions: Abdomen/Pelvis CT 12/01/17 00:00 IMPRESSION: Distended gallbladder, probably physiologic. No biliary dilatation. Chest X-Ray 12/01/17 09:49 IMPRESSION: Cardiomegaly without evidence of acute cardiopulmonary disease. Assessment & Plan - Diagnosis (1) Elevated troponin Is this a current diagnosis for this admission?: Yes (2) Defibrillator discharge Is this a current diagnosis for this admission?: Yes (3) Chronic CHF Qualifiers: Heart failure type: combined systolic and diastolic Qualified Code(s): I50.42 - Chronic combined systolic (congestive) and diastolic (congestive) heart failure Is this a current diagnosis for this admission?: Yes (4) Ischemic dilated cardiomyopathy Is this a current diagnosis for this admission?: Yes (5) Hypokalemia Is this a current diagnosis for this admission?: Yes (6) Coronary artery disease Qualifiers: Coronary Disease-Associated Artery/Lesion type: [place] artery [place] vs. transplanted heart: [place] heart Associated angina: angina presence unspecified Qualified Code(s): I25.10 - Atherosclerotic heart disease of [place] coronary artery without angina pectoris Is this a current diagnosis for this admission?: Yes (7) Elevated brain natriuretic peptide (BNP) level Is this a current diagnosis for this admission?: Yes (8) COPD (chronic obstructive pulmonary disease) Qualifiers: COPD type: COPD with acute exacerbation Qualified Code(s): J44.1 - Chronic obstructive pulmonary disease with (acute) exacerbation Is this a current diagnosis for this admission?: Yes (9) Ventricular fibrillation Is this a current diagnosis for this admission?: Yes - Notes Notes: Elevated troponin I: Most likely related to defibrillator discharge but cannot rule out underlying ischemia. Patient without any chest pain. EKG is not interpretable. At this point agree with trending troponin. Will consider nuclear stress test once troponin I tends down. Defibrillator discharge: This was interrogated by the ER physician and was noted to be appropriate discharge. Recommend maintaining electrolytes within normal limits. Have added Ranexa. Should patient have further defibrillator discharge, will recommend transfer to tertiary care for further evaluation and management. Chronic CHF: Will optimize therapy for chronic CHF. Hypokalemia: Maintain potassium level over 4 mEq/L. Coronary artery disease: Patient recently had stent placement. Elevated BNP level. Will trend this to find out his baseline. COPD: Currently stable. Patient advised to avoid any firsthand and secondhand smoking. - Time Time Spent: 30 to 50 Minutes - CODE STATUS was discussed, patient remains full code. Surrogate decision-maker unchanged. Multiple medical problems were addressed. More than 50% of the time spent coordinating care, discussing management plans with involved caregivers. Management plans discussed with involved personnels. Medical decision making was of moderate to high complexity , patient's has multiple comorbidities. Medications reviewed and adjusted accordingly: Yes
[2017-12-02] MEDS ORDERED: SACUBITRIL/VALSARTAN 24 MG/26 MG TABLET PO ONE (11:30)
[2017-12-02] MEDS ORDERED: RANOLAZINE 500 MG TAB.SR.12H PO ONE (11:30)
[2017-12-02 11:43] LABS: CREATINE KINASE MB 1.38 ng/mL (<4.55)
[2017-12-02 11:48] LABS: TROPONIN I 0.56 ng/mL
--- NOTE | 2017-12-02 12:55 | PDOC PROGRESS REPORT ---
Subjective Progress Note for:: 12/02/17 Subjective:: Patient seems to be doing better with gradual improvement. Pt is denying any chest arm or neck discomfort. Patient denying any PND, orthopnea. Patient denied any sustained palpitations, dizziness, syncope, near syncope. Patient denying any fever chills. Patient denying any other significant discomfort. Patient is maintaining sinus rhythm. Patient noted to have short runs of nonsustained ventricular tachycardia. Review of systems: Rest review of systems negative. Medications: Medications have been reviewed. Reason For Visit: CHEST PAIN,HYPOKALEMIA Physical Exam Vital Signs: Temp Pulse Resp BP Pulse Ox 98.6 F 91 17 107/68 93 12/02/17 10:53 12/02/17 10:53 12/02/17 10:53 12/02/17 10:53 12/02/17 10:53 Intake & Output 12/01/17 12/02/17 12/03/17 06:59 06:59 06:59 Intake Total 275 Output Total 975 Balance -700 Weight 80.4 kg Exam: GENERAL: well-nourished and in no acute distress. Alert and oriented x3 HEAD: Atraumatic, normocephalic. EYES: Pupils equal round and reactive to light, extraocular movements intact, sclera anicteric, conjunctiva are normal. ENT: TMs normal, nares patent, oropharynx clear without exudates. Moist mucous membranes. No oral ulcerations or bleeding gums noted NECK: supple without lymphadenopathy. Trachea is central. No cervical or axillary lymphadenopathy noted. Carotids are 2+, JVD WNL LUNGS: Respiration seems nonlabored, no significant accessory muscle action noted. Breath sounds clear to auscultation bilaterally and equal noted. No wheezes rales or rhonchi noted. No significant dullness noted on percussion. CHEST: Palpation of the chest wall shows no significant chest wall tenderness. No other significant abnormalities noted. 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 ABDOMEN: Soft, no significant tenderness appreciated, normoactive bowel sounds. No guarding, no rebound. No rigidity noted . No masses appreciated. EXTREMITIES: Pedal pulses are 1-2+, no calf tenderness noted. No clubbing or cyanosis.trace pedal edema noted NEUROLOGICAL: Focused neurological exam showed no significant neurologic deficit. Normal speech, no focal weakness appreciated. PSYCH: Normal mood, normal affect. Judgment and insight within normal limits. SKIN: No significant ecchymosis, skin is noted to be warm. MUSCULOSKELETAL EXAM: No significant acute joint swelling noted. Results Laboratory Results: 12/02/17 04:13 12/02/17 04:13 12/02/17 12/02/17 04:13 04:13 WBC 4.4 RBC 4.88 Hgb 14.5 Hct 43.1 MCV 88 MCH 29.8 MCHC 33.7 RDW 16.4 H Plt Count 155 Seg Neutrophils % 65.2 Lymphocytes % 21.6 Monocytes % 9.6 Eosinophils % 2.3 Basophils % 1.3 Absolute Neutrophils 2.9 Absolute Lymphocytes 1.0 Absolute Monocytes 0.4 Absolute Eosinophils 0.1 Absolute Basophils 0.1 Sodium 135.7 L Potassium 4.4 D Chloride 97 L Carbon Dioxide 29 Anion Gap 10 BUN 13 Creatinine 0.81 Est GFR ( Amer) > 60 Est GFR (Non-Af Amer) > 60 Glucose 93 Calcium 9.1 Magnesium 1.9 12/01/17 12/01/17 12/02/17 13:30 13:30 11:00 Creatine Kinase 44 L 38 L CK-MB (CK-2) Troponin I 0.439 NT-Pro-B Natriuret Pep 12/02/17 11:00 Creatine Kinase CK-MB (CK-2) 1.38 Troponin I 0.560 NT-Pro-B Natriuret Pep 9680 H EKG Comments: Telemetry strips reviewed. It shows short runs of wide-complex tachycardia. Impressions: Abdomen/Pelvis CT 12/01/17 00:00 IMPRESSION: Distended gallbladder, probably physiologic. No biliary dilatation. Chest X-Ray 12/01/17 09:49 IMPRESSION: Cardiomegaly without evidence of acute cardiopulmonary disease. Assessment & Plan - Diagnosis (1) Elevated troponin Is this a current diagnosis for this admission?: Yes (2) Defibrillator discharge Is this a current diagnosis for this admission?: Yes (3) Chronic CHF Qualifiers: Heart failure type: combined systolic and diastolic Qualified Code(s): I50.42 - Chronic combined systolic (congestive) and diastolic (congestive) heart failure Is this a current diagnosis for this admission?: Yes (4) Ischemic dilated cardiomyopathy Is this a current diagnosis for this admission?: Yes (5) Hypokalemia Is this a current diagnosis for this admission?: Yes (6) Coronary artery disease Qualifiers: Coronary Disease-Associated Artery/Lesion type: [place] artery [place] vs. transplanted heart: [place] heart Associated angina: angina presence unspecified Qualified Code(s): I25.10 - Atherosclerotic heart disease of [place] coronary artery without angina pectoris Is this a current diagnosis for this admission?: Yes (7) Elevated brain natriuretic peptide (BNP) level Is this a current diagnosis for this admission?: Yes (8) COPD (chronic obstructive pulmonary disease) Qualifiers: COPD type: COPD with acute exacerbation Qualified Code(s): J44.1 - Chronic obstructive pulmonary disease with (acute) exacerbation Is this a current diagnosis for this admission?: Yes - Notes Notes: Troponin I level obtained today showed progressive rise in troponin I. This is of some concern. I did talk with to cyber security engineer, Dr. Gan and also Dr. Tom Faustin. They told me that it is not unusual for the troponin I to rise to this level with defibrillator shocks secondary to ventricular tachycardia/fibrillation. Dr. Gan recommended adding mexiletine, however Dr. Tom Faustin recommended Ranexa. Patient was placed on Ranexa therapy and the dose will be increased. I also talked with Dr.Asesh Waldron, [facility] interventional cardiology attending, regarding need for cardiac catheterization however he looked at his previous heart catheterization from May 2017 and informed me that no need for cardiac catheterization in the absence of any ischemic symptoms. He also felt troponin I release was from defibrillator shocks. He felt that there could be some potential harm from heart catheterization, with dye-induced LV systolic dysfunction. At this point, based on recommendation from tertiary care, will try push beta- pato, add Ranexa and go up on the dose. Patient will benefit from optimization of all other comorbid diagnosis patient has. Have discussed that given his very poor EF of 15% noted on recent echocardiogram performed in the office, overall prognosis is going to be poor. Patient has been advised to avoid all marijuana use, tobacco alcohol use etc. Patient however claims that he has not been using any such substance over quite some time. Should patient develop any chest pain or has more recurrent sustained ventricular tachycardia, I will still have low threshold for transfer to tertiary care. - Time Time with patient: Greater than 35 minutes - CODE STATUS was discussed, patient remains full code. Surrogate decision-maker unchanged. Multiple medical problems were addressed. More than 50% of the time spent coordinating care, discussing management plans with involved caregivers. Management plans discussed with involved personnels. Medical decision making was of moderate to high complexity, patient's has multiple comorbidities. Medications reviewed and adjusted accordingly: Yes
[2017-12-02] MEDS ORDERED: SPIRONOLACTONE 25 MG TABLET PO ONE (13:30)
--- NOTE | 2017-12-02 16:11 | PDOC PROGRESS REPORT ---
Subjective Progress Note for:: 12/02/17 Subjective:: 52-year-old gentleman with past medical history of ischemic cardiomyopathy status post AICD presented to the hospital on December 01 due to his defibrillator shocking him. He denied any chest pain or shortness of breath. He reports compliance with all his medications. The patient tells me that he is on Medicaid and is unable to afford Entresto or Ranexa. No complaints at present. Reason For Visit: CHEST PAIN,HYPOKALEMIA Physical Exam Vital Signs: Temp Pulse Resp BP Pulse Ox 98.6 F 83 17 107/68 93 12/02/17 10:53 12/02/17 14:00 12/02/17 10:53 12/02/17 10:53 12/02/17 10:53 Intake & Output 12/01/17 12/02/17 12/03/17 06:59 06:59 06:59 Intake Total 275 Output Total 975 Balance -700 Weight 80.4 kg General appearance: PRESENT: no acute distress Eye exam: PRESENT: EOMI Mouth exam: PRESENT: moist Neck exam: ABSENT: tenderness, tracheal deviation Respiratory exam: PRESENT: clear to auscultation marek, symmetrical, unlabored. ABSENT: wheezes Cardiovascular exam: PRESENT: RRR GI/Abdominal exam: PRESENT: normal bowel sounds, soft. ABSENT: tenderness Rectal exam: PRESENT: deferred Results Laboratory Results: 12/02/17 04:13 12/02/17 04:13 12/02/17 12/02/17 04:13 04:13 WBC 4.4 RBC 4.88 Hgb 14.5 Hct 43.1 MCV 88 MCH 29.8 MCHC 33.7 RDW 16.4 H Plt Count 155 Seg Neutrophils % 65.2 Lymphocytes % 21.6 Monocytes % 9.6 Eosinophils % 2.3 Basophils % 1.3 Absolute Neutrophils 2.9 Absolute Lymphocytes 1.0 Absolute Monocytes 0.4 Absolute Eosinophils 0.1 Absolute Basophils 0.1 Sodium 135.7 L Potassium 4.4 D Chloride 97 L Carbon Dioxide 29 Anion Gap 10 BUN 13 Creatinine 0.81 Est GFR ( Amer) > 60 Est GFR (Non-Af Amer) > 60 Glucose 93 Calcium 9.1 Magnesium 1.9 12/01/17 12/01/17 12/02/17 13:30 13:30 11:00 Creatine Kinase 44 L 38 L CK-MB (CK-2) Troponin I 0.439 NT-Pro-B Natriuret Pep 12/02/17 11:00 Creatine Kinase CK-MB (CK-2) 1.38 Troponin I 0.560 NT-Pro-B Natriuret Pep 9680 H Impressions: Abdomen/Pelvis CT 12/01/17 00:00 IMPRESSION: Distended gallbladder, probably physiologic. No biliary dilatation. Chest X-Ray 12/01/17 09:49 IMPRESSION: Cardiomegaly without evidence of acute cardiopulmonary disease. Assessment & Plan - Diagnosis (1) Cardiac defibrillator in place Is this a current diagnosis for this admission?: Yes (2) Chronic CHF Qualifiers: Heart failure type: combined systolic and diastolic Qualified Code(s): I50.42 - Chronic combined systolic (congestive) and diastolic (congestive) heart failure Is this a current diagnosis for this admission?: Yes (3) Defibrillator discharge Is this a current diagnosis for this admission?: Yes (4) Elevated troponin Is this a current diagnosis for this admission?: Yes (5) Ischemic dilated cardiomyopathy Is this a current diagnosis for this admission?: Yes - Time Time Spent with patient: 25-34 minutes - Plan Summary Plan Summary: Monitor CK and troponin. Mild troponin elevation most likely secondary to defibrillator discharge due to V. fib/V. tach. No chest pain. Continue to monitor.
[2017-12-02] MEDS: SACUBITRIL/VALSARTAN 24 MG/26 MG TABLET PO SCH (17:38)
[2017-12-02 18:06] LABS: CREATINE KINASE MB 1.01 ng/mL (<4.55); TROPONIN I 0.489 ng/mL
[2017-12-02] MEDS: CARVEDILOL 6.25 MG TABLET PO SCH (21:04)
[2017-12-02] MEDS: RANOLAZINE 500 MG TAB.SR.12H PO SCH (21:31)
[2017-12-03] MEDS: FUROSEMIDE INJ/PF 20 MG/2 ML SDV IV SCH (05:05)
[2017-12-03] MEDS: LANSOPRAZOLE 30 MG TAB.RAP.DR PO SCH (05:05)
[2017-12-03] MEDS ORDERED: SPIRONOLACTONE 25 MG TABLET PO SCH (10:00)
[2017-12-03] MEDS: MAGNESIUM OXIDE 400 MG TABLET PO SCH (10:37)
[2017-12-03] MEDS: MIDODRINE HCL 5 MG TABLET PO SCH (10:37)
[2017-12-03] MEDS: CLOPIDOGREL BISULFATE 75 MG TABLET PO SCH (10:37)
[2017-12-03] MEDS: RANOLAZINE 500 MG TAB.SR.12H PO SCH (10:37)
[2017-12-03] MEDS: CARVEDILOL 6.25 MG TABLET PO SCH (10:37)
[2017-12-03] MEDS: DOCUSATE SODIUM 100 MG CAPSULE PO SCH (10:38)
[2017-12-03] MEDS: DIGOXIN 0.25 MG TABLET PO SCH (10:38)
[2017-12-03] MEDS: SACUBITRIL/VALSARTAN 24 MG/26 MG TABLET PO SCH (10:39)
--- NOTE | 2017-12-03 13:55 | PDOC DISCHARGE SUMMARY ---
General - Admit/Disc Date/PCP Admission Date/Primary Care Provider: 12/01/17 12:33 Dr. Yany Smith Discharge Date: 12/03/17 - Discharge Diagnosis (1) Cardiac defibrillator in place Is this a current diagnosis for this admission?: Yes (2) Chronic CHF Is this a current diagnosis for this admission?: Yes (3) Defibrillator discharge Is this a current diagnosis for this admission?: Yes (4) Elevated troponin Is this a current diagnosis for this admission?: Yes (5) Ischemic dilated cardiomyopathy Is this a current diagnosis for this admission?: Yes - Additional Information Resuscitation Status: Full Code Discharge Diet: Cardiac Discharge Activity: Activity As Tolerated Prescriptions: Magnesium Oxide [Diasense Magnesium] 400 mg PO DAILY 90 Days tablet Home Medications: Clopidogrel Bisulfate [Plavix 75 mg Tablet] 75 mg PO DAILY 11/10/17 Digoxin [Lanoxin] 250 mcg PO DAILY 11/10/17 Aspirin [Aspirin 81 mg Chewable Tablet] 81 mg PO DAILY tab.chew 11/17/17 Furosemide [Lasix 40 mg Tablet] 40 mg PO BID 30 Days #60 tablet 11/17/17 Metolazone [Zaroxolyn 5 mg Tablet] 5 mg PO DAILY 30 Days #30 tablet 11/17/17 Midodrine HCl [Proamatine 5 mg Tablet] 10 mg PO TID 30 Days #90 tablet 11/17/17 Carvedilol [Coreg 6.25 mg Tablet] 6.25 mg PO Q12 tablet 12/03/17 Clopidogrel Bisulfate [Plavix 75 mg Tablet] 75 mg PO DAILY tablet 12/03/17 Magnesium Oxide [Diasense Magnesium] 400 mg PO DAILY 90 Days tablet 12/03/17 Midodrine HCl [Proamatine 5 mg Tablet] 10 mg PO TID tablet 12/03/17 Spironolactone [Aldactone 25 mg Tablet] 25 mg PO DAILY tablet 12/03/17 History of Present Illness History of Present Illness: 52-year-old gentleman with past medical history of ischemic cardiomyopathy status post AICD presented to the hospital on December 01 due to his defibrillator shocking him. He denied any chest pain or shortness of breath. He reports compliance with all his medications. The patient reported that he is on Medicaid and is unable to afford Entresto or Ranexa. He was seen in consultation by Dr. Smith his manager career who recommended follow -up with EP cardiology as an outpatient. Coreg dose was doubled by Dr. Smith. Hospital Course Hospital Course: See above. He is chest pain-free. No further AICD discharge. He was asked to also take magnesium supplements. Plan and was mildly positive but trending down. Test was 0.5 with CK-MB of 1.3. This was felt to be secondary to AICD discharge. Physical Exam Vital Signs: Temp Pulse Resp BP Pulse Ox 97.4 F 82 16 94/63 L 98 12/03/17 11:07 12/03/17 11:07 12/03/17 11:07 12/03/17 11:07 12/03/17 11:07 Intake & Output 12/02/17 12/03/17 12/04/17 06:59 06:59 06:59 Intake Total 275 886 Output Total 975 Balance -700 886 Weight 80.4 kg 82.4 kg General appearance: PRESENT: no acute distress Neck exam: ABSENT: tracheal deviation Respiratory exam: PRESENT: clear to auscultation marek, symmetrical, unlabored. ABSENT: wheezes Cardiovascular exam: PRESENT: RRR GI/Abdominal exam: PRESENT: soft Results Laboratory Results: 12/02/17 04:13 12/02/17 04:13 12/01/17 12/01/17 12/02/17 13:30 13:30 11:00 Creatine Kinase 44 L 38 L CK-MB (CK-2) Troponin I 0.439 NT-Pro-B Natriuret Pep 12/02/17 12/02/17 11:00 17:10 Creatine Kinase CK-MB (CK-2) 1.38 1.01 Troponin I 0.560 0.489 NT-Pro-B Natriuret Pep 9680 H Impressions: Abdomen/Pelvis CT 12/01/17 00:00 IMPRESSION: Distended gallbladder, probably physiologic. No biliary dilatation. Chest X-Ray 12/01/17 09:49 IMPRESSION: Cardiomegaly without evidence of acute cardiopulmonary disease. Qualifiers - * PATEINT BEING DISCHARGED WITH ANY OF THE FOLLOWING DIAGNOSIS?: No
[2017-12-03 14:01] VITALS: BP 88/64
--- NOTE | 2017-12-05 19:07 | PDOC PROGRESS REPORT ---
Subjective Progress Note for:: 12/03/17 Subjective:: Patient seems to be doing better with gradual improvement. Pt is denying any chest arm or neck discomfort. Patient denying any PND, orthopnea. Patient denied any sustained palpitations, dizziness, syncope, near syncope. Patient denying any fever chills. Patient denying any other significant discomfort. Patient is maintaining sinus rhythm. No significant ventricular dysrhythmia noted. Review of systems: Rest review of systems negative. Medications: Medications have been reviewed. Reason For Visit: CHEST PAIN,HYPOKALEMIA Physical Exam Vital Signs: Temp Pulse Resp BP Pulse Ox 97.4 F 82 16 94/63 L 98 12/03/17 11:07 12/03/17 11:07 12/03/17 11:07 12/03/17 11:07 12/03/17 11:07 Intake & Output 12/02/17 12/03/17 12/04/17 06:59 06:59 06:59 Intake Total 275 886 Output Total 975 Balance -700 886 Weight 80.4 kg 82.4 kg Exam: GENERAL: well-nourished and in no acute distress. Alert and oriented x3 HEAD: Atraumatic, normocephalic. EYES: Pupils equal round and reactive to light, extraocular movements intact, sclera anicteric, conjunctiva are normal. ENT: TMs normal, nares patent, oropharynx clear without exudates. Moist mucous membranes. No oral ulcerations or bleeding gums noted NECK: supple without lymphadenopathy. Trachea is central. No cervical or axillary lymphadenopathy noted. Carotids are 2+, JVD WNL LUNGS: Respiration seems nonlabored, no significant accessory muscle action noted. Breath sounds clear to auscultation bilaterally and equal noted. No wheezes rales or rhonchi noted. No significant dullness noted on percussion. CHEST: Palpation of the chest wall shows no significant chest wall tenderness. No other significant abnormalities noted. Defibrillator noted left-sided chest. 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 ABDOMEN: Soft, no significant tenderness appreciated, normoactive bowel sounds. No guarding, no rebound. No rigidity noted . No masses appreciated. EXTREMITIES: Pedal pulses are 1-2+, no calf tenderness noted. No clubbing or cyanosis.trace pedal edema noted NEUROLOGICAL: Focused neurological exam showed no significant neurologic deficit. Normal speech, no focal weakness appreciated. PSYCH: Normal mood, normal affect. Judgment and insight within normal limits. SKIN: No significant ecchymosis, skin is noted to be warm. MUSCULOSKELETAL EXAM: No significant acute joint swelling noted. Results Laboratory Results: 12/02/17 04:13 12/02/17 04:13 12/01/17 12/01/17 12/02/17 13:30 13:30 11:00 Creatine Kinase 44 L 38 L CK-MB (CK-2) Troponin I 0.439 NT-Pro-B Natriuret Pep 12/02/17 12/02/17 11:00 17:10 Creatine Kinase CK-MB (CK-2) 1.38 1.01 Troponin I 0.560 0.489 NT-Pro-B Natriuret Pep 9680 H Impressions: Abdomen/Pelvis CT 12/01/17 00:00 IMPRESSION: Distended gallbladder, probably physiologic. No biliary dilatation. Chest X-Ray 12/01/17 09:49 IMPRESSION: Cardiomegaly without evidence of acute cardiopulmonary disease. Assessment & Plan - Diagnosis (1) Elevated troponin Is this a current diagnosis for this admission?: Yes (2) Defibrillator discharge Is this a current diagnosis for this admission?: Yes (3) Chronic CHF Qualifiers: Heart failure type: combined systolic and diastolic Qualified Code(s): I50.42 - Chronic combined systolic (congestive) and diastolic (congestive) heart failure Is this a current diagnosis for this admission?: Yes (4) Ischemic dilated cardiomyopathy Is this a current diagnosis for this admission?: Yes (5) Hypokalemia Is this a current diagnosis for this admission?: Yes (6) Coronary artery disease Qualifiers: Coronary Disease-Associated Artery/Lesion type: [place] artery [place] vs. transplanted heart: [place] heart Associated angina: angina presence unspecified Qualified Code(s): I25.10 - Atherosclerotic heart disease of [place] coronary artery without angina pectoris Is this a current diagnosis for this admission?: Yes (7) Elevated brain natriuretic peptide (BNP) level Is this a current diagnosis for this admission?: Yes (8) COPD (chronic obstructive pulmonary disease) Qualifiers: COPD type: COPD with acute exacerbation Qualified Code(s): J44.1 - Chronic obstructive pulmonary disease with (acute) exacerbation Is this a current diagnosis for this admission?: Yes (9) Ventricular tachycardia Is this a current diagnosis for this admission?: Yes - Notes Notes: Troponin I level is not trending down. After discussion with multiple super specialist, it is felt that troponin I level is just related to defibrillator shocks and ventricular tachyarrhythmias. There has been no further recurrences. Patient placed on Ranexa and entresto. He might have some difficulty affording it. Coronary artery disease: Symptomatically stable without any angina or angina equivalent symptoms. CHF: This seems to have stabilized. Patient has stable shortness of breath without any worsening. His BNP has come down. COPD: Currently is stable. ICD: Will make a referral as an outpatient to examination scorer to see if any changes in setting or synchronization might help. Patient can follow-up with me or my physician infertility medical assistant in the office. Will thereafter, will refer to various subspecialist. Given his young age, patient may need to be plugged into a heart failure program/heart transplant program. Time spent discussing all this is more than 35 minutes. - Time Time with patient: Greater than 35 minutes - CODE STATUS was discussed, patient remains full code. Multiple medical problems were addressed. More than 50% of the time spent coordinating care, discussing management plans with involved caregivers. Management plans discussed with involved personnels. Medical decision making was of moderate to high complexity, patient's has multiple comorbidities. Medications reviewed and adjusted accordingly: Yes
== END 2017-12-03 14:54 | disposition home or self-care (01) ==
LOC: ER 08:48 → INTOOBSV 12:33 → EH 12:33 → 5 17:28
PROVIDERS: ADMIT Emergency Medicine; ATTEND Emergency Medicine
DX: R10.11 Right upper quadrant pain (principal); R06.09 Other forms of dyspnea; R77.8 Other specified abnormalities of plasma proteins; Z95.810 Presence of automatic (implantable) cardiac defibrillator; E87.6 Hypokalemia; I42.0 Dilated cardiomyopathy; I25.5 Ischemic cardiomyopathy; I11.0 Hypertensive heart disease with heart failure; I50.9 Heart failure, unspecified; I25.2 Old myocardial infarction; J44.9 Chronic obstructive pulmonary disease, unspecified; Z87.891 Personal history of nicotine dependence
CPT/HCPCS: 93005; 99291; 36415 ×2; 82553 ×2; 82550 ×2; 83735; 85025 ×2; 80048; 80053; 84484 ×2; 83880 ×2; 71045; 74177; 93010; G0378 ×4; A9270 ×22; J3490 ×3; J1940 ×2; J3475

== ENCOUNTER 2019-01-25 02:20 | Emergency (ER) | payer MEDICAID, MEDICARE ==
[2019-01-25] MEDS ORDERED: MIDAZOLAM HCL 0 MG/0 ML RTUINJ ONE (02:34)
--- NOTE | 2019-01-25 02:38 | ER Document Report ---
ED General - General Stated Complaint: POST ARREST Time Seen by Provider: 01/25/19 02:29 Notes: Patient is a 53-year-old male who presents post cardiac arrest. Per history from paramedics said that apparently family had called for and [place]ie. Patient lives by himself. They suspect that the patient had tried to call the family. They had gotten a message that he was having chest pain. When paramedics arrived he was home alone and unresponsive on the floor. He was pulseless. They started CPR immediately. They gave him 3 rounds of epinephrine as well as 2 mg of Narcan. They did not have suspicion for opiate use. Narcan was given as they did not know the underlying cause of what caused him to go to cardiac arrest. Initial arrhythmia was PEA. After 3 rounds of epinephrine they did give return of pulses. Patient has retained his pulse since then. Patient does not require any sedation. He is intubated. He does have history of cardiac disease and does have a pacemaker. Further history is not obtainable as the patient is unresponsive and family has not yet arrived. TRAVEL OUTSIDE OF THE [place] IN LAST 30 DAYS: No - Related Data Allergies/Adverse Reactions: cinnamon Allergy (Verified 12/01/17 13:36) morphine [Morphine] Adverse Reaction (Severe, Verified 12/01/17 13:36) itching heparin Adverse Reaction (Verified 12/01/17 13:53) Past Medical History - Social History Smoking Status: Unknown if Ever Smoked Frequency of alcohol use: unknown Drug Abuse: Other - unknown Family History: CAD - Past Medical History Cardiac Medical History: Reports: Hx Congestive Heart Failure, Hx Coronary Gia ry Disease, Hx Heart Attack Denies: Hx Hypertension Pulmonary Medical History: Reports: Hx COPD Denies: Hx Asthma, Hx Bronchitis, Hx Pneumonia, Hx Tuberculosis Neurological Medical History: Denies: Hx Seizures Renal/ Medical History: Denies: Hx Benign Prostatic Hyperplasia, Hx End Stage Renal Disease, Hx Kidney Stones, Hx Peritoneal Dialysis GI Medical History: Denies: Hx Cirrhosis, Hx Gastroesophageal Reflux Disease, Hx Ulcer Musculoskeletal Medical History: Denies Hx Arthritis, Denies Hx Multiple Sclerosis Skin Medical History: Comment Only Hx MRSA - MRSA 04/15 [facility] Psychiatric Medical History: Denies: Hx Bipolar Disorder, Hx Depression, Hx Schizophrenia Past Surgical History: Reports: Hx Cardiac Catheterization - with stent, Hx Internal Defibrillator, Hx PacemakerComment Only: Hx Cardiac Surgery - defib placement - Immunizations Hx Diphtheria, Pertussis, Tetanus Vaccination: No Review of Systems - Review of Systems -: Yes ROS unobtainable due to patient's medical condition - Patient is unresponsive Physical Exam - Vital signs Vitals: Resp Pulse Ox 21 H 100 01/25/19 02:25 01/25/19 02:25 - Notes Notes: General Appearance: Well nourished, unresponsive and intubated. Occasional agonal breathing. Vitals: reviewed, See vital signs table. Head: no swelling or tenderness to the head Eyes: PERRL, EOMI, Conjuctiva clear Mouth: No decreasd moisture Lungs: Occasional agonal breathing. Patient is otherwise manually ventilated. Clear lung sounds bilaterally. Heart: Normal rate, Regular rythm, No murmur, no rub Abdomen: Normal BS, soft, No rigidity, No abdominal tenderness, No guarding, no rebound, no abdominal masses, no organomegaly Extremities: good pulses in all extremities, no swelling or tenderness in the extremities, no edema. Skin: warm, dry, appropriate color, no rash Neuro: Unresponsive. Pupils are 4 mm and sluggish in reaction to light. No purposeful movement other than occasional agonal breathing Course - Re-evaluation Re-evalutation: 01/25/19 03:06 Family has not arrived. They did say that the patient called them and said he felt like he was having a heart attack and asked him to call the ambulance. They therefore called the ambulance. They said he they think he had a stent at [facility] last year. He is followed at [facility] for his heart. 01/25/19 03:33 Patient is now starting to become hypotensive. We will remove cold packs to prevent any side effects from hypothermia such as hypotension. I will start him on epinephrine drip try to help prevent further drops in his blood pressure. 01/25/19 04:28 Patient's blood pressure slowly started to come up with epinephrine. His systolic blood pressure was low 90s now. His ABG did come back showing he is acidotic and therefore I will try to transition him to vasopressin as this is typically more effective in acidotic patients. Troponin is still pending. I di d call [facility] and spoke with Dr. Willie Macias, shoe dresser, who agrees to accept the patient for transfer. 01/25/19 05:41 Flight medics are at bedside. Patient's blood pressure currently systolically in the 90s with the vasopressin drip. Heart rate and oxygenation are normal. Continues to not have much purposeful movement. He is taking some breaths on his own. Continues to have some shivering of his jaw intermittently. At this time I feel the patient is medically stable for transfer to [facility]. - Vital Signs Vital signs: Temp Pulse Resp BP Pulse Ox 97.0 F 27 H 123/90 H 95 01/25/19 05:27 01/25/19 05:27 01/25/19 05:27 01/25/19 05:27 - Laboratory Result Diagrams: 01/25/19 02:28 01/25/19 02:28 Laboratory results interpreted by me: 01/25/19 01/25/19 01/25/19 02:28 02:28 02:28 RDW 16.6 H Carbonic Acid 1.45 H ABG pH 7.05 L* ABG pCO2 48.1 H ABG pO2 300.3 H ABG HCO3 13.0 L ABG Total CO2 14.4 L ABG O2 Saturation 99.4 H Potassium 5.2 H Carbon Dioxide 17 L Anion Gap 20 H Creatinine 1.48 H Est GFR (Non-Af Amer) 50 L Glucose 259 H Magnesium 2.8 H - EKG Interpretation by Me Additional EKG results interpreted by me: 01/25/19 02:40 EKG is reviewed and interpreted by me. EKG shows sinus rhythm with a rate of [address] segment elevation or depression. Patient does have widened QRS complex consistent with intraventricular conduction delay. This is unchanged comparison to his previous EKG from December 01, 2017. CO interval is prolonged. QRS duration is prolonged. QT interval is prolonged. 01/25/19 04:47 EKG #2 is reviewed and interpreted by me. EKG shows sinus rhythm with a rate of [address] segment elevation depression comparison to his previous EKG. CO interval, QRS duration are within normal range. QTc interval is borderline. Discharge - Discharge Clinical Impression: Cardiac arrest Condition: Stable Disposition: [facility]
[2019-01-25] MEDS ORDERED: NORMAL SALINE 1000 ML 1,000 ML IV ONE (02:45)
[2019-01-25 02:46] LABS: ABSOLUTE BASOPHILS # (AUTO) 0.1 10^3/uL (0.0-0.2); ABSOLUTE EOSINOPHILS # (AUTO) 0.3 10^3/uL (0.0-0.6); ABSOLUTE LYMPHOCYTES (AUTO) 2.5 10^3/uL (0.5-4.7); ABSOLUTE MONOCYTES (AUTO) 0.5 10^3/uL (0.1-1.4); ABSOLUTE NEUT (AUTO) 3.8 10^3/uL (1.7-8.2); HEMATOCRIT 47.4 % (37.9-51.0); HEMOGLOBIN 15.2 g/dL (13.5-17.0); MEAN CORPUSCULAR VOLUME 97 fl (80-97); MONOCYTES % (AUTO) 6.9 % (3-13); PLATELET COUNT 156 10^3/uL (150-450); RED CELL DISTRIBUTION WIDTH 16.6 % (11.5-14.0); SEGMENTED NEUTROPHILS % (AUTO) 53.1 % (42-78); TOTAL CELLS COUNTED % (AUTO) 100 %; WHITE BLOOD COUNT 7.1 10^3/uL (4.0-10.5)
[2019-01-25 03:30] LABS: ALANINE AMINOTRANSFERASE 32 U/L (21-72); ALBUMIN 3.9 g/dL (3.5-5.0); ALKALINE PHOSPHATASE 67 U/L (38-126); ASPARTATE AMINO TRANSFERASE 47 U/L (17-59); BILIRUBIN,DIRECT 0.3 mg/dL (0.0-0.4); BLOOD UREA NITROGEN 16 mg/dL (7-20); CALCIUM 8.8 mg/dL (8.4-10.2); GLUCOSE 259 mg/dL (75-110); POTASSIUM 5.2 mmol/L (3.6-5.0); TOTAL PROTEIN 6.6 g/dL (6.3-8.2)
[2019-01-25] MEDS ORDERED: DEXTROSE 5%-WATER 250 ML with EPINEPHRINE/PF 1 MG IV PRN ×2 (03:32)
[2019-01-25] MEDS ORDERED: SODIUM BICARBONATE 8.4% INJ 50 MEQ/50 ML DISP.SYRIN IV ONE (03:33)
[2019-01-25] MEDS ORDERED: NOREPINEPHRINE BITARTRATE INJ/PF 4 MG/4 ML SDV IV ONE (03:34)
[2019-01-25 03:35] LABS: CARBON DIOXIDE 17 mmol/L (22-30); CHLORIDE 106 mmol/L (98-107); SODIUM 142.7 mmol/L (137-145)
[2019-01-25] MEDS ORDERED: SODIUM BICARBONATE 8.4% INJ 50 MEQ/50 ML DISP.SYRIN ONE (03:35)
[2019-01-25 03:38] LABS: ANION GAP 20 (5-19)
[2019-01-25] MEDS ORDERED: EPINEPHRINE INJ/PF 1 MG/1 ML AMPULE ONE (03:39)
--- NOTE | 2019-01-25 03:57 | RADIOLOGY REPORT (SQ) ---
EXAM DESCRIPTION: CT HEAD WITHOUT IV CONTRAST COMPLETED DATE/TME: 01/25/2019 02:32 CLINICAL HISTORY: 53 years Male, cardiac arrest COMPARISON: None. TECHNIQUE: No contrast. Coronal and sagittal reformat. This exam was performed according to our departmental dose-optimization program, which includes automated exposure control, adjustment of the mA and/or kV according to patient size and/or use of iterative reconstruction technique. FINDINGS: No hemorrhage or infarct. No mass, mass effect, or midline shift. Enteric and endotracheal tube partially imaged. Brain and extra-axial structures appear otherwise intact. IMPRESSION: No acute findings.
--- NOTE | 2019-01-25 03:59 | RADIOLOGY REPORT (SQ) ---
EXAM DESCRIPTION: XR CHEST 1 VIEW COMPLETED DATE/TME: 01/25/2019 02:30 CLINICAL HISTORY: 53 years Male, cardiac arrest COMPARISON: 11/10/17 NUMBER OF VIEWS/TECHNIQUE: 1/AP FINDINGS: Adequate lung volume, clear parenchyma, mildly enlarged cardiac silhouette, and intact bony thorax.Left cardiac stimulator with leads. Adequate appearing endotracheal tube. Adequate appearing enteric tube partially obscured. IMPRESSION: No acute cardiopulmonary findings. Mild cardiac enlargement, chronic.
[2019-01-25 04:14] LABS: ARTERIAL BLOOD BASE EXCESS -17.6 mmol/L; ARTERIAL BLOOD H2CO3 1.45 mmol/L (1.05-1.35); ARTERIAL BLOOD O2 SATURATION 99.4 % (94-98); ARTERIAL BLOOD PCO2 48.1 mmHg (35-45); ARTERIAL BLOOD PO2 300.3 mmHg (80-100); ARTERIAL BLOOD TOTAL CO2 14.4 mmol/L (23-27)
[2019-01-25] MEDS ORDERED: ASPIRIN 300 MG SUPP, RECTAL PR ONE (04:16)
[2019-01-25 04:18] LABS: ARTERIAL BLOOD FIO2 100%; ARTERIAL BLOOD PH 7.05 (7.35-7.45)
[2019-01-25] MEDS ORDERED: DEXTROSE 5%-WATER 250 ML with VASOPRESSIN 100 UNIT IV PRN ×2 (04:18)
[2019-01-25] MEDS ORDERED: VASOPRESSIN INJ 20 UNIT/1 ML VIAL ONE (04:23)
[2019-01-25 06:11] VITALS: BP 86/65
--- NOTE | 2019-01-25 06:39 | EKG REPORT ---
SEVERITY:- ABNORMAL ECG - SINUS RHYTHM AND A PACING FIRST DEGREE AV BLOCK LEFT ATRIAL ABNORMALITY NONSPECIFIC IVCD WITH LAD LEFT VENTRICULAR HYPERTROPHY CONSIDER OLD LATERAL MS : Confirmed by: Arthur Romano MD 25-Jan-2019 06:38:53
--- NOTE | 2019-01-25 06:40 | EKG REPORT ---
SEVERITY:- ABNORMAL ECG - SINUS RHYTHM FIRST DEGREE AV BLOCK IVCD, CONSIDER ATYPICAL LBBB OLD LATERAL NV : Confirmed by: Arthur Romano MD 25-Jan-2019 06:39:29
== END 2019-01-25 05:50 | disposition short-term general hospital (02) ==
LOC: ER 02:20
DX: I46.9 Cardiac arrest, cause unspecified (principal); R40.4 Transient alteration of awareness; I50.9 Heart failure, unspecified; I25.10 Atherosclerotic heart disease of native coronary artery without angina pectoris; Z95.0 Presence of cardiac pacemaker; I25.2 Old myocardial infarction; Z86.14 Personal history of Methicillin resistant Staphylococcus aureus infection
CPT/HCPCS: 93005; 36600; 99291; 99292; 96361; 51702; 96365; 96367; 36415; 82803; 83735; 85025; 80053; 84484; 71045; 70450; 94660; 93010; J0171; J3490 ×2; J7060; J7030; 94003